=== PATIENT | female | born 1980 | race Caucasian/White ===

== ENCOUNTER 2016-04-11 12:42 | Emergency (ER) | payer MEDICAID ==
--- NOTE | 2016-04-11 12:57 | ER Document Report ---
ED Medical Screen (RME) - General Stated Complaint: BACK PAIN, VAGINAL BLEEDING Notes: 35 yo female c/o vaginal bleeding x 1 week. 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 s/p partial hysterctomy 2005. c/o left flank pain. no urinary symptoms. no fever. + nausea, no vomiting. TRAVEL OUTSIDE OF THE [place] IN LAST 30 DAYS: No - Related Data Allergies/Adverse Reactions: ketorolac tromethamine [From Toradol] Adverse Reaction (Unverified 05/05/15 08: 21) "feels like skin is crawling" morphine [Morphine] Adverse Reaction (Unverified 05/05/15 08:21) Past Medical History Pulmonary Medical History: Reports: Hx Asthma Neurological Medical History: Reports: Hx Migraine. Denies: Hx Seizures GI Medical History: Reports: Hx Gastroesophageal Reflux Disease Past Surgical History: Reports: Hx Breast Surgery - lump, Hx Section - X2, Hx Gynecologic Surgery, Hx Hysterectomy - bladder and rectal surger, Hx Orthopedic Surgery - r ankle, Hx Thyroid Surgery, Hx Tonsillectomy - Immunizations Hx Diphtheria, Pertussis, Tetanus Vaccination: Yes - utd Physical Exam - Vital signs Vitals: Temp Pulse Resp BP Pulse Ox 98.0 F 79 16 124/78 97 04/11/16 12:50 04/11/16 12:50 04/11/16 12:50 04/11/16 12:50 04/11/16 12:50 Course - Vital Signs Vital signs: Temp Pulse Resp BP Pulse Ox 98.0 F 79 16 124/78 97 04/11/16 12:50 04/11/16 12:50 04/11/16 12:50 04/11/16 12:50 04/11/16 12:50
[2016-04-11 13:37] LABS: APPEARANCE,URINE SLIGHTLY-CLOUDY; BILIRUBIN,URINE NEGATIVE (NEGATIVE); GLUCOSE, URINE NEGATIVE (NEGATIVE); KETONES,URINE NEGATIVE (NEGATIVE); LEUKOCYTE ESTERASE,URINE SMALL (NEGATIVE); NITRITE,URINE NEGATIVE (NEGATIVE); PROTEIN,URINE NEGATIVE (NEGATIVE); UROBILINOGEN,URINE NEGATIVE mg/dL (<2.0)
[2016-04-11 14:23] LABS: ALANINE AMINOTRANSFERASE 53 U/L (9-52); ALBUMIN 3.5 g/dL (3.5-5.0); ALKALINE PHOSPHATASE 107 U/L (38-126); ANION GAP 10 (5-19); ASPARTATE AMINO TRANSFERASE 49 U/L (14-36); BILIRUBIN,TOTAL 0.3 mg/dL (0.2-1.3); BLOOD UREA NITROGEN 18 mg/dL (7-20); CALCIUM 8.6 mg/dL (8.4-10.2); CARBON DIOXIDE 26 mmol/L (22-30); CHLORIDE 107 mmol/L (98-107); CREATININE RESULT 0.74 mg/dL (0.52-1.25); GLUCOSE 103 mg/dL (75-110); POTASSIUM 4.5 mmol/L (3.6-5.0); SODIUM 142.5 mmol/L (137-145); TOTAL PROTEIN 6.8 g/dL (6.3-8.2)
--- NOTE | 2016-04-11 14:40 | ER Document Report ---
ED GI/ - General Time seen by provider: 14:50 Mode of Arrival: Ambulatory Information source: Patient TRAVEL OUTSIDE OF THE [place] IN LAST 30 DAYS: No <JUAN C KRAUS - Last Filed: 04/11/16 16:43> <MARIUM TELLO - Last Filed: 04/11/16 17:25> - General Chief Complaint: Vaginal Bleeding Stated Complaint: BACK PAIN, VAGINAL BLEEDING Notes: 35-year-old female complaining of old vaginal bleeding when she urinates, wipes for 1 week. She also has increased left flank pain with coughing or movement for 4 days. Has history of kidney stones that it doesn't feel the same. hx chronic low back pain in which she takes methadone 10mg and ultram. 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 she does have some bladder drop since the surgery. No pain. No nausea vomiting or diarrhea. No Pap smears since 2005. No sex in 3 months. (JUAN C KRAUS) - Related Data Allergies/Adverse Reactions: ketorolac tromethamine [From Toradol] Adverse Reaction (Verified 04/11/16 12:57) "feels like skin is crawling" morphine [Morphine] Adverse Reaction (Verified 04/11/16 12:57) Past Medical History - General Information source: Patient - Social History Smoking Status: Current Every Day Smoker Chew tobacco use (# tins/day): No Frequency of alcohol use: None Drug Abuse: None Lives with: Family Family History: Reviewed & Not Pertinent Patient has suicidal ideation: No Patient has homicidal ideation: No Pulmonary Medical History: Reports: Hx Asthma Neurological Medical History: Reports: Hx Migraine GI Medical History: Reports: Hx Gastroesophageal Reflux Disease Past Surgical History: Reports: Hx Breast Surgery - lump, Hx Section - X2, Hx Gynecologic Surgery, Hx Hysterectomy - bladder and rectal surger, Hx Orthopedic Surgery - r ankle, Hx Thyroid Surgery, Hx Tonsillectomy - Immunizations Hx Diphtheria, Pertussis, Tetanus Vaccination: Yes - utd <JUAN C KRAUS - Last Filed: 04/11/16 16:43> Review of Systems - Review of Systems Constitutional: No symptoms reported EENT: No symptoms reported Cardiovascular: No symptoms reported Respiratory: No symptoms reported Gastrointestinal: No symptoms reported Genitourinary: No symptoms reported Female Genitourinary: No symptoms reported Musculoskeletal: No symptoms reported Skin: No symptoms reported Hematologic/Lymphatic: No symptoms reported Neurological/Psychological: No symptoms reported <JUAN C KRAUS - Last Filed: 04/11/16 16:43> Course - Laboratory Result Diagrams: 04/11/16 15:04 04/11/16 13:09 <JUAN C KRAUS - Last Filed: 04/11/16 16:43> - Laboratory Result Diagrams: 04/11/16 15:04 04/11/16 13:09 <MARIUM TELLO - Last Filed: 04/11/16 17:25> - Re-evaluation Re-evalutation: 04/11/16 15:38 dr paz will come sede the pt in the emergency department, to evaluate and possible biopsy. Discussed case with dr. tello. 04/11/16 16:20 dr. Paz saw the patient and biopsied the lesion that is vaginal at 6:00 under this cervical cough. She wants the patient to follow-up in her office next . She does not want any imaging today. (JUAN C KRAUS) 04/11/16 17:24 Patient independently seen and examined by myself all treatment decisions made by myself. Patient reports vaginal bleeding and trace suprapubic tenderness. She denies nausea, vomiting, or fever Skin warm and dry Chest clear to auscultation bilaterally breath sounds equal Heart regular rate and rhythm Abdomen muscle tone trace suprapubic tenderness nondistended Back nontender to palpation (MARIUM TELLO) - Vital Signs Vital signs: Temp Pulse Resp BP Pulse Ox 98.0 F 66 18 137/88 H 98 04/11/16 12:50 04/11/16 17:11 04/11/16 17:11 04/11/16 17:11 04/11/16 17:11 (JUAN C KRAUS) (MARIUM TELLO) - Laboratory Laboratory results interpreted by me: 04/11/16 04/11/16 13:09 13:09 AST 49 H ALT 53 H Urine Blood LARGE H Ur Leukocyte Esterase SMALL H (JUAN C KRAUS) (MARIUM TELLO) Discharge <JUAN C KRAUS - Last Filed: 04/11/16 16:43> <MARIUM TELLO - Last Filed: 04/11/16 17:25> - Discharge Clinical Impression: Vaginal lesion, vaginal biopsy, Vaginal bleeding, left flank back pain Condition: Good Disposition: HOME, SELF-CARE Instructions: Vaginal Bleeding ([facility]), Low Back Pain ([facility]) Additional Instructions: no sex until recheck expect some vaginal bleeding return to er if increased bleeding or pain the biopsy has been sent to the lab for evaluation see dr. paz in her office next , call for appointment Referrals: LILLIE PAZ MD [ACTIVE STAFF] - 04/19/16
[2016-04-11 15:12] LABS: ABSOLUTE BASOPHILS # (AUTO) 0.1 10^3/uL (0.0-0.2); ABSOLUTE EOSINOPHILS # (AUTO) 0.3 10^3/uL (0.0-0.6); ABSOLUTE LYMPHOCYTES (AUTO) 3.2 10^3/uL (0.5-4.7); ABSOLUTE MONOCYTES (AUTO) 0.9 10^3/uL (0.1-1.4); ABSOLUTE NEUT (AUTO) 6.1 10^3/uL (1.7-8.2); BASOPHILS % (AUTO) 0.7 % (0-2); EOSINOPHILS % (AUTO) 2.5 % (0-6); HEMATOCRIT 43.3 % (36.0-47.0); HEMOGLOBIN 14.5 g/dL (12.0-15.5); HGB HCT DIFFERENCE 0.2; LYMPHOCYTES % (AUTO) 30.3 % (13-45); MEAN CORPUSCULAR HEMOGLOBIN 29.9 pg (27.0-33.4); MEAN CORPUSCULAR HGB CONC 33.4 g/dL (32.0-36.0); MEAN CORPUSCULAR VOLUME 89 fl (80-97); MONOCYTES % (AUTO) 8.2 % (3-13); RED BLOOD COUNT 4.85 10^6/uL (3.72-5.28); RED CELL DISTRIBUTION WIDTH 12.7 % (11.5-14.0); SEGMENTED NEUTROPHILS % (AUTO) 58.3 % (42-78); WHITE BLOOD COUNT 10.5 10^3/uL (4.0-10.5)
[2016-04-11] MEDS ORDERED: TRAMADOL HCL 50 MG TABLET PO ONE (15:45)
[2016-04-11 17:13] VITALS: BP 137/88
[2016-04-11 17:14] LABS: CHLAM PCR NOT DETECTED (NOT DETECT)
== END 2016-04-11 17:11 | disposition home or self-care (01) ==
LOC: ER 12:42
PROC: 0UBGXZX Excision of Vagina, External Approach, Diagnostic (ICD-10-PCS; principal; 2016-04-11)
DX: N89.9 Noninflammatory disorder of vagina, unspecified (principal); N93.9 Abnormal uterine and vaginal bleeding, unspecified; Q79.6 Ehlers-Danlos syndromes; R10.9 Unspecified abdominal pain; M54.5 Low back pain; G89.29 Other chronic pain; J45.909 Unspecified asthma, uncomplicated; F17.200 Nicotine dependence, unspecified, uncomplicated; Z79.891 Long term (current) use of opiate analgesic; Z87.442 Personal history of urinary calculi; Z90.710 Acquired absence of both cervix and uterus; Z98.890 Other specified postprocedural states
CPT/HCPCS: 36415; 80053; 81001; 85025; 87086; 87210; 87491; 87591; 88305; 99284

== ENCOUNTER 2016-04-25 05:26 | Day surgery (SDC) | payer MEDICAID ==
[2016-04-24 12:22] LABS: APPEARANCE,URINE SLIGHTLY-CLOUDY; BILIRUBIN,URINE NEGATIVE (NEGATIVE); GLUCOSE, URINE NEGATIVE (NEGATIVE); KETONES,URINE NEGATIVE (NEGATIVE); LEUKOCYTE ESTERASE,URINE NEGATIVE (NEGATIVE); NITRITE,URINE NEGATIVE (NEGATIVE); PROTEIN,URINE NEGATIVE (NEGATIVE)
[2016-04-24 12:46] LABS: HEMATOCRIT 44.3 % (36.0-47.0); HEMOGLOBIN 15.2 g/dL (12.0-15.5); HGB HCT DIFFERENCE 1.3; MEAN CORPUSCULAR HEMOGLOBIN 30.2 pg (27.0-33.4); MEAN CORPUSCULAR HGB CONC 34.4 g/dL (32.0-36.0); MEAN CORPUSCULAR VOLUME 88 fl (80-97); RED BLOOD COUNT 5.05 10^6/uL (3.72-5.28); RED CELL DISTRIBUTION WIDTH 13.1 % (11.5-14.0)
[~2016-04-25 05:26] MED LIST: LACTATED RINGERS 1000 ML IV PRN
[2016-04-25] MEDS ORDERED: FENTANYL CITRATE INJ/PF 100 MCG/2 ML AMPUL ONE (07:19)
[2016-04-25] MEDS ORDERED: MIDAZOLAM 2 MG/2 ML INJ ONE (07:19)
[2016-04-25] MEDS ORDERED: PROPOFOL INJ 200 MG/20 ML VIAL IV ONE (07:20)
[2016-04-25] MEDS ORDERED: OXYCODONE-ACETAMINOPHEN 5-325 MG TABLET PO PRN ×2 (07:59)
[2016-04-25] MEDS ORDERED: PROMETHAZINE HCL INJ 25 MG/1 ML VIAL IV PRN ×2 (07:59)
[2016-04-25] MEDS ORDERED: DIPHENHYDRAMINE HCL 50 MG/ML VIAL IV PRN (07:59)
[2016-04-25] MEDS ORDERED: MEPERIDINE HCL/PF INJ 25 MG/1 ML DISP.SYRIN IV PRN (07:59)
[2016-04-25] MEDS ORDERED: FENTANYL CITRATE INJ/PF 100 MCG/2 ML AMPUL IV PRN ×3 (07:59)
[2016-04-25] MEDS ORDERED: MORPHINE SULFATE 10 MG/ML INJ IV PRN (07:59)
[2016-04-25] MEDS: FENTANYL CITRATE INJ/PF 100 MCG/2 ML AMPUL ONE ×2 (08:33→08:45)
[2016-04-25] MEDS ORDERED: ONDANSETRON HCL INJ/PF 4 MG/2 ML SDV ONE ×2 (08:38→11:23)
[2016-04-25] MEDS ORDERED: IBUPROFEN 800 MG TABLET PO PRN (08:47)
[2016-04-25 11:09] VITALS: BP 112/70
[2016-04-25] MEDS ORDERED: SUCCINYLCHOLINE CHLORIDE INJ 200 MG/10 ML VIAL ONE (11:23)
[2016-04-25] MEDS ORDERED: LIDOCAINE 2% INJ-PF (20 MG/ML) 10 ML AMPUL ONE (11:23)
[2016-04-25] MEDS ORDERED: GLYCOPYRROLATE INJ 0.4 MG/2 ML VIAL ONE (11:23)
[2016-04-25] MEDS ORDERED: KETOROLAC TROMETHAMINE 60 MG/2 ML SDV ONE (11:23)
[2016-04-25] MEDS ORDERED: DEXAMETHASONE SOD PHOSPHATE INJ 4 MG/1 ML VIAL ONE (11:23)
--- NOTE | 2016-07-05 02:43 | OPERATIVE REPORT E ---
Operative Report NAME: DEBBIE MOFFETT : 1980 AGE: 35Y DATE OF SURGERY: 04/25/2016 ROOM: PREOPERATIVE DIAGNOSIS: Status post supracervical hysterectomy with vaginal bleeding and pelvic pain. POSTOPERATIVE DIAGNOSIS: Status post supracervical hysterectomy with vaginal bleeding and pelvic pain. PROCEDURE PERFORMED: SURGEON: LILLIE PAZ M.D. ANESTHESIA: Dr. Long with [facility]. ESTIMATED BLOOD LOSS: Less than 5 mL. FINDINGS: Normal cervical stump with a small scratch on the posterior side of the cervix. PROCEDURE IN DETAIL: The patient was taken to the operating room, prepared and draped in a normal sterile fashion in dorsal lithotomy position. Under sterile conditions, an in and out catheter was performed. A sterile speculum was then placed into the vagina, and the cervix was prepped with Betadine. A thorough exam was performed, and a small scratch on the posterior side of the cervix was noted in the area of bleeding when the patient had previously presented to the ER a week earlier. This area was biopsied carefully with a pair of forceps and then the defect at the area of biopsy was then oversewn with 2-0 Chromic x2 interrupted stitches. No further bleeding. No other abnormalities were noted. The patient tolerated the procedure well. Sponge, lap, and needle counts were correct x2, and the patient was taken to recovery in stable condition. DICTATING PHYSICIAN: LILLIE PAZ M.D. [id number] PHY#: [id number] ID: [id number] JOB#: [id number] ACCT: [id number] cc:LILLIE PAZ M.D. >
== END 2016-04-25 10:45 | disposition home or self-care (01) ==
LOC: OROUT 05:26
PROVIDERS: ATTEND Obstetrics & Gynecology
PROC: 0UBC7ZX Excision of Cervix, Via Natural or Artificial Opening, Diagnostic (ICD-10-PCS; principal; 2016-04-25 07:30)
DX: N89.8 Other specified noninflammatory disorders of vagina (principal); J45.909 Unspecified asthma, uncomplicated; R01.1 Cardiac murmur, unspecified; Z88.5 Allergy status to narcotic agent; Z87.891 Personal history of nicotine dependence
CPT/HCPCS: 57500; 36415; 85027; 81005; 81025; 88305 ×2; J2250; J3490 ×3; J1100; J1885; J3010; J0330; J2405; J2704; 940

== ENCOUNTER → 2016-06-24 | Emergency (ER) | payer MEDICAID ==
[~2016-06-24] MED LIST changes: +BESIFLOXACIN HCL 0.6% OPH SUSP 5 ML BOTTLE OU ONE; +HYDROCODONE/ACETAMINOPHEN 5-325 MG 6 TAB/DSPK PO PRN; -LACTATED RINGERS 1000 ML IV PRN; +TETRACAINE HCL 0.5% OPH SOLN 2 ML OU ONE
[2016-06-24 02:52] VITALS: BP 133/81
--- NOTE | 2016-06-24 05:31 | ER Document Report ---
ED General - General Chief Complaint: Eye Pain Stated Complaint: BILATERAL EYE PAIN,BLURRY Notes: Patient is a 35-year-old female who presents with complaint of eye pain. She says it started her left eye. The left eye became red and irritated. Notes in her right eye as well. She denies any trauma or injuries to her eyes. She does not wear contacts. No foreign bodies to the eyes. She had similar symptoms conjunctivitis last year. She has some photophobia. She started having some nasal congestion the last 2 days as well. No fevers. No other complaints this time. TRAVEL OUTSIDE OF THE [place] IN LAST 30 DAYS: No - Related Data Allergies/Adverse Reactions: ketorolac tromethamine [From Toradol] Adverse Reaction (Verified 04/24/16 10:08) "feels like skin is crawling" Past Medical History - Social History Smoking Status: Unknown if Ever Smoked Frequency of alcohol use: None Drug Abuse: None Family History: Reviewed & Not Pertinent - Past Medical History Cardiac Medical History: Denies: Hx Coronary Artery Disease, Hx Heart Attack, Hx Hypertension Pulmonary Medical History: Reports: Hx Asthma - LAST ASTHMA ATTACK 1 YEAR AGO, Hx Bronchitis - A CHILD, Hx Pneumonia - A TEENAGER Denies: Hx COPD Neurological Medical History: Reports: Hx Migraine, Hx Seizures - LAST ONE 18 YEARS OLD. Denies: Hx Cerebrovascular Accident Renal/ Medical History: Denies: Hx Peritoneal Dialysis GI Medical History: Reports: Hx Gastroesophageal Reflux Disease Musculoskeltal Medical History: Denies Hx Arthritis Past Surgical History: Reports: Hx Breast Surgery - lump, Hx Section - X2, Hx Gynecologic Surgery, Hx Hysterectomy, Hx Orthopedic Surgery - r ankle, Hx Thyroid Surgery, Hx Tonsillectomy - Immunizations Hx Diphtheria, Pertussis, Tetanus Vaccination: No Review of Systems - Review of Systems Notes: My Normal Review Basic REVIEW OF SYSTEMS: CONSTITUTIONAL : Denies fever, chills, or sweats. Denies recent illness. EENT: Eye pain and redness to the left eye. CARDIOVASCULAR: Denies chest pain. RESPIRATORY: Denies cough, cold, or chest congestion. Denies shortness of breath, difficulty breathing, or wheezing. GASTROINTESTINAL: Denies abdominal pain. Denies nausea, vomiting, or diarrhea. Denies constipation. Last BM: MUSCULOSKELETAL: Denies neck or back pain or joint pain or swelling. SKIN: Denies rash or skin lesions. NEUROLOGICAL: Denies altered mental status or loss of consciousness. Denies headache. Denies weakness or paralysis or loss of use of either side. Denies problems with gait or speech. Denies sensory or motor loss. ALL OTHER SYSTEMS REVIEWED AND NEGATIVE. Physical Exam - Vital signs Vitals: Temp Pulse Resp BP Pulse Ox 98.4 F 99 18 133/81 H 98 06/24/16 02:47 06/24/16 02:47 06/24/16 02:47 06/24/16 02:47 06/24/16 02:47 - Notes Notes: General Appearance: Well nourished, alert, cooperative, no acute distress, no obvious discomfort. Obvious is located chest and on exam. Vitals: reviewed, See vital signs table. Head: no swelling or tenderness to the head Eyes: PERRL, EOMI, left conjunctiva is erythematous and consistent with conjunctivitis. No foreign body seen. Right conjunctivae slightly erythematous. No swelling or redness around the eye. Edvin-Pen pressure of the left eye is 19. Edvin-Pen pressure of the right eye is 17. Pupils are not cloudy. Mouth: No decreasd moisture Skin: warm, dry, appropriate color, no rash Neuro: speech clear, oriented x 3, normal affect, responds appropriately to questions. Course - Vital Signs Vital signs: Temp Pulse Resp BP Pulse Ox 98.4 F 99 18 133/81 H 98 06/24/16 02:47 06/24/16 02:47 06/24/16 02:47 06/24/16 02:47 06/24/16 02:47 - Transfer of Care Notes: 06/24/16 05:58 Patient has findings consistent with conjunctivitis. Her tonopen pressures were normal. She with placed on Besivance eyedrops. She's encouraged to follow closely with torch solderer in one to 2 days for reevaluation. She's encouraged return to ER if she has worsening pain, worsening redness, fevers, or feels unwell. Patient agrees with plan and will be discharged home. 06/24/16 05:59 Dictation of this chart was performed using voice recognition software; therefore, there may be some unintended grammatical errors. Discharge - Discharge Clinical Impression: Conjunctivitis Qualifiers: Conjunctivitis type: acute Acute conjunctivitis type: unspecified Laterality: bilateral Qualified Code(s): H10.33 - Unspecified acute conjunctivitis, bilateral Eye pain Qualifiers: Laterality: bilateral Qualified Code(s): H57.13 - Ocular pain, bilateral Condition: Good Disposition: HOME, SELF-CARE Additional Instructions: Conjunctivitis You have an infection in your eye, commonly known as "pink eye." Conjunctivitis causes redness, mild discomfort, itching, and mattering on the eyelids. It is very contagious, so you must be careful to wash your hands after touching your face so you don't pass the infection on to others. Conjunctivitis is caused by both viruses and bacteria. It usually responds quickly to treatment with antibiotic drops. These should be placed in the eye as prescribed (usually every three to four hours while you're awake). If you wear contact lenses, don't put them in your eyes until the infection is cleared and you are no longer using the drops (unless your doctor advises you otherwise). Should you develop increasing eye pain, severe swelling, decreased vision, or fail to improve as expected, please return for re-examination. Please return to ER immediately if you have fevers, worsening redness or swelling in your eyes, or if your symptoms are not improving after being on eyedrops for 3 days. Please follow-up with torch solderer on Saturday. I provided the phone number to 2 different local torch solderer. Please apply 1 drop of the Besivance to both eyes 3 times a day for 7 days. Forms: Return to Work Referrals: CHRIS PIÑA MD [ACTIVE STAFF] - 06/25/16 WINSOME MCKINNON DO [ACTIVE STAFF] - 06/25/16
== END | disposition home or self-care (01) ==
LOC: ER 02:39
DX: H10.33 Unspecified acute conjunctivitis, bilateral (principal); H57.13 Ocular pain, bilateral; H53.143 Visual discomfort, bilateral; R09.81 Nasal congestion
CPT/HCPCS: 99283; J3490

== ENCOUNTER 2017-04-29 16:31 | Emergency (ER) | payer MEDICAID ==
[2017-04-29] MEDS ORDERED: HYDROCODONE/ACETAMINOPHEN 5-325 MG TABLET PO ONE (19:09)
--- NOTE | 2017-04-29 19:10 | ER Document Report ---
ED Skin Rash/Insect Bite/Abscs - General Chief Complaint: Abscess Stated Complaint: VAGINAL DISCOMFORT Time Seen by Provider: 04/29/17 18:57 Mode of Arrival: Ambulatory Information source: Patient Notes: Pt is a 36-year-old female who presents to the ER today for a lump inside her right labia since March 18. Patient states that yesterday it got warm, more swollen and painful. She denies any drainage. She denies any fevers or chills. TRAVEL OUTSIDE OF THE [place] IN LAST 30 DAYS: No - Related Data Allergies/Adverse Reactions: ketorolac tromethamine [From Toradol] Adverse Reaction (Verified 04/29/17 16:35) "feels like skin is crawling" Past Medical History - General Information source: Patient - Social History Smoking Status: Current Every Day Smoker Chew tobacco use (# tins/day): No Frequency of alcohol use: None Drug Abuse: None Family History: Reviewed & Not Pertinent Patient has suicidal ideation: No Patient has homicidal ideation: No - Past Medical History Cardiac Medical History: Denies: Hx Coronary Artery Disease, Hx Heart Attack, Hx Hypertension Pulmonary Medical History: Reports: Hx Asthma - LAST ASTHMA ATTACK 1 YEAR AGO, Hx Bronchitis - A CHILD, Hx Pneumonia - A TEENAGER Denies: Hx COPD Neurological Medical History: Reports: Hx Migraine, Hx Seizures - LAST ONE 18 YEARS OLD. Denies: Hx Cerebrovascular Accident Renal/ Medical History: Denies: Hx Peritoneal Dialysis GI Medical History: Reports: Hx Gastroesophageal Reflux Disease Musculoskeltal Medical History: Denies Hx Arthritis Past Surgical History: Reports: Hx Breast Surgery - lump, Hx Section - X2, Hx Gynecologic Surgery, Hx Hysterectomy, Hx Orthopedic Surgery - r ankle, Hx Thyroid Surgery, Hx Tonsillectomy - Immunizations Hx Diphtheria, Pertussis, Tetanus Vaccination: No Review of Systems - Review of Systems Constitutional: No symptoms reported EENT: No symptoms reported Cardiovascular: No symptoms reported Respiratory: No symptoms reported Gastrointestinal: No symptoms reported Genitourinary: No symptoms reported Female Genitourinary: See HPI Musculoskeletal: No symptoms reported Skin: No symptoms reported Hematologic/Lymphatic: No symptoms reported Neurological/Psychological: No symptoms reported Physical Exam - Vital signs Vitals: Temp Pulse Resp BP Pulse Ox 99.1 F 81 20 123/81 97 04/29/17 17:06 04/29/17 17:06 04/29/17 17:06 04/29/17 17:06 04/29/17 17:06 - Notes Notes: PHYSICAL EXAMINATION: GENERAL: Well-appearing and in no acute distress. HEAD: Atraumatic, normocephalic. EYES: Pupils equal round and reactive to light, extraocular movements intact, sclera anicteric, conjunctiva are normal. NECK: Normal range of motion, supple without lymphadenopathy LUNGS: CTAB and equal. No wheezes rales or rhonchi. HEART: Regular rate and rhythm without murmurs : small, less than 1cm area of induration to right labia minora, tender to palpation EXTREMITIES: Normal range of motion, no pitting edema. No cyanosis. NEUROLOGICAL: Cranial nerves grossly intact. Normal sensory/motor exams. PSYCH: Normal mood, normal affect. SKIN: Warm, Dry, normal turgor, no rashes or lesions noted Course - Vital Signs Vital signs: Temp Pulse Resp BP Pulse Ox 99.1 F 81 20 123/81 97 04/29/17 17:06 04/29/17 17:06 04/29/17 17:06 04/29/17 17:06 04/29/17 17:06 Discharge - Discharge Clinical Impression: Abscess of labia Condition: Stable Disposition: HOME, SELF-CARE Additional Instructions: Return immediately for any new or worsening symptoms. Follow up with primary care provider, call tomorrow to make followup appointment. Prescriptions: Sulfamethoxazole/Trimethoprim [Bactrim Ds Tablet] 1 each PO BID #20 tablet
[2017-04-29 19:26] VITALS: BP 109/74
== END 2017-04-29 19:26 | disposition home or self-care (01) ==
LOC: ER 16:31
DX: N76.4 Abscess of vulva (principal); F17.200 Nicotine dependence, unspecified, uncomplicated; Z90.710 Acquired absence of both cervix and uterus
CPT/HCPCS: 99282

== ENCOUNTER 2017-05-02 07:45 | Emergency (ER) | payer MEDICAID ==
[2017-05-02 07:58] VITALS: BP 122/84
--- NOTE | 2017-05-02 09:13 | ER Document Report ---
ED Skin Rash/Insect Bite/Abscs - General Chief Complaint: Abscess Stated Complaint: VAGINAL PAIN Time Seen by Provider: 05/02/17 09:09 Notes: The patient is a 36-year-old female who presents with 1 month of labial abscess. She was seen in the ER 3 days ago and started on Bactrim, but she says that her abscess is worsening. She denies fevers, vaginal discharge, dysuria, nausea, vomiting or any other abscesses. TRAVEL OUTSIDE OF THE [place] IN LAST 30 DAYS: No - Related Data Allergies/Adverse Reactions: ketorolac tromethamine [From Toradol] Adverse Reaction (Verified 05/02/17 07:46) "feels like skin is crawling" Past Medical History - General Information source: Patient - Social History Smoking Status: Unknown if Ever Smoked Family History: Reviewed & Not Pertinent - Past Medical History Cardiac Medical History: Denies: Hx Coronary Artery Disease, Hx Heart Attack, Hx Hypertension Pulmonary Medical History: Reports: Hx Asthma - LAST ASTHMA ATTACK 1 YEAR AGO, Hx Bronchitis - A CHILD, Hx Pneumonia - A TEENAGER Denies: Hx COPD Neurological Medical History: Reports: Hx Migraine, Hx Seizures - LAST ONE 18 YEARS OLD. Denies: Hx Cerebrovascular Accident Renal/ Medical History: Denies: Hx Peritoneal Dialysis GI Medical History: Reports: Hx Gastroesophageal Reflux Disease Musculoskeltal Medical History: Denies Hx Arthritis Past Surgical History: Reports: Hx Breast Surgery - lump, Hx Section - X2, Hx Gynecologic Surgery, Hx Hysterectomy, Hx Orthopedic Surgery - r ankle, Hx Thyroid Surgery, Hx Tonsillectomy - Immunizations Hx Diphtheria, Pertussis, Tetanus Vaccination: No Review of Systems - Review of Systems Notes: REVIEW OF SYSTEMS: CONSTITUTIONAL: -fevers, -chills EENT: -eye pain, -difficulty swallowing, -nasal congestion CARDIOVASCULAR: -chest pain, -syncope. RESPIRATORY: -cough, -SOB GASTROINTESTINAL: -abdominal pain, -nausea, -vomiting, -diarrhea GENITOURINARY: +vaginal abscess, -dysuria, -hematuria MUSCULOSKELETAL: -back pain, -neck pain SKIN: -rash or skin lesions. HEMATOLOGIC: -easy bruising or bleeding. LYMPHATIC: -swollen, enlarged glands. NEUROLOGICAL: -altered mental status or loss of consciousness, -headache, - neurologic symptoms PSYCHIATRIC: -anxiety, -depression. ALL OTHER SYSTEMS REVIEWED AND NEGATIVE. Physical Exam - Vital signs Vitals: Temp Pulse Resp BP Pulse Ox 98.4 F 82 16 122/84 97 05/02/17 07:57 05/02/17 07:57 05/02/17 07:57 05/02/17 07:57 05/02/17 07:57 - Notes Notes: PHYSICAL EXAMINATION: GENERAL: Well-appearing, well-nourished and in no acute distress. HEAD: Atraumatic, normocephalic. EYES: Pupils equal round and reactive to light, extraocular movements intact, sclera anicteric, conjunctiva are normal. ENT: nares patent, oropharynx clear without exudates. Moist mucous membranes. NECK: Normal range of motion, supple without lymphadenopathy LUNGS: Breath sounds clear to auscultation bilaterally and equal. No wheezes rales or rhonchi. HEART: Regular rate and rhythm without murmurs ABDOMEN: Soft, nontender, normoactive bowel sounds. No guarding, no rebound. No masses appreciated. : 2 cm abscess with a pointed region at superior right labia majora. No crepitus in groin region. EXTREMITIES: Normal range of motion, no pitting or edema. No cyanosis. NEUROLOGICAL: Cranial nerves grossly intact. Normal speech, normal gait. Normal sensory and motor exams. PSYCH: Normal mood, normal affect. SKIN: Warm, Dry, normal turgor, no rashes or lesions noted. Course - Re-evaluation Re-evalutation: Patient with right labia majora abscess that was I&D'ed with some purulent drainage. She already has a prescription for Bactrim. No signs of Tracey's and no history of diabetes. Will discharge patient home with follow-up with gynecology and instructions to continue her Bactrim. - Vital Signs Vital signs: Temp Pulse Resp BP Pulse Ox 98.4 F 82 16 122/84 97 05/02/17 07:57 05/02/17 07:57 05/02/17 07:57 05/02/17 07:57 05/02/17 07:57 Procedures - Incision and Drainage Right Labia Time completed: 09:24 Type: Simple Anesthetic type: 1% Lidocaine w/epi mL's of anesthetic: 3 Blade size: 11 I&D procedure: Betadine prep applied Incision Method: Incision made by scalpel Amount/type of drainage: 3 mL purulent drainage Discharge - Discharge Clinical Impression: Abscess of right genital labia Condition: Stable Disposition: HOME, SELF-CARE Additional Instructions: Continue the antibiotics as already prescribed. Continue to use warm compresses and hot baths. Follow-up with gynecology this week for a recheck of your symptoms. ABSCESS: You have an abscess (boil). This a pus-forming infection, usually due to staph. Some boils may be left to drain on their own, but most require lancing. From the time the tender lump first appears, it may be three or four days before the abscess is ready to milagro. Local heat and rest help at this stage of treatment. An antibiotic may prevent spread of the infection. Once the abscess is opened, packing may be placed into it. This is done so pus is not sealed inside by premature closure of the cavity. The packing will be removed at your follow-up visit or you may be advised to remove it yourself at home. Sometimes this packing must be replaced a few times during healing. The wound will heal with surprisingly little scar. Depending on the size and location of an abscess, healing can take one to four weeks. You may shower and wash the area around the incision site two or three times a day. Antibiotics may be prescribed, but are usually not necessary after an abscess has been drained. If you develop fever, chills, worsening pain, or increasing swelling in the area, call the doctor or return immediately. POST INCISION AND DRAINAGE: You have had an incision made to allow drainage of an abscess. The incision must remain open so that pus and debris can drain from the wound. If the abscess cavity is large, packing is placed. This keeps the tissues from collapsing and trapping pus inside, while the body shrinks the cavity. The packing may need to be replaced every day or two. The physician will instruct you on the packing. Keep a bulky dressing over the area. Replace it if it becomes saturated with blood or pus. Do not disturb the packing (if present). You may shower and cleanse the area with gentle soap and warm water two or three times a day. Local warmth may be soothing, and may promote faster healing. Return if you develop high fever or chills, or if you note spreading redness, increasing swelling, or increasing tenderness. MRSA CELLULITIS: You have an infection of your skin and underlying soft tissues called cellulitis. This is due to bacteria, which can enter through any break in the skin, or even through an irritated hair follicle. Untreated, cellulitis will usually worsen and may form an abscess which requires draining. Although many bacterial organisms can cause cellulitis and abscess formations, the most likely bacteria is Methicillin-Resistant Staph Aureus, or MRSA for short. Antibiotics are required. Usually, warm packs or warm soaks, and elevation of the infected area are recommended. You should start getting better within 24 to 36 hours. Most infections respond quickly to the right medication. Follow-up care is important, however, to check for abscess (boil) formation, unsuspected foreign body, or resistant infection. If you develop fever, chills, or if the area of infection is becoming rapidly more swollen or painful, call the doctor at once. TRIMETHOPRIM-SULFA: You have been given a prescription for trimethoprim-sulfa (TMS, Septra, Bactrim). This is a combination antibiotic of the sulfa class, often used for urinary tract infections, middle ear infections, bronchitis, shigella intestinal infection, and Pneumocystis pneumonia. TMS is usually well-tolerated. Occasional side effects include nausea and decreased appetite. Septra is not recommended for infants less than two months of age. Do not take this medication if you have experienced severe side effects or allergy to sulfa medicine. You should stop this medicine at once and contact your physician if you develop any rash, joint pain, shortness of breath, bruising, or jaundice ( yellow color in the skin), or if you develop any other new or unusual symptoms. FOLLOW-UP CARE: Most simple abscesses will not require a follow up visit. If you had packing placed in the abscess, remove it as instructed by the physician. If you have been referred to a physician for follow-up care, call the physicians office for an appointment as you were instructed or within the next two days. If you experience worsening or a significant change in your symptoms, return to the Emergency Department at any time for re-evaluation. Referrals: LILLIE PAZ MD [ACTIVE STAFF] - Follow up as needed
[2017-05-02] MEDS ORDERED: LIDOCAINE 1%/EPINEPHRINE INJ 20 ML VIAL INJ ONE (09:19)
[2017-05-02] MEDS ORDERED: HYDROCODONE/ACETAMINOPHEN 5-325 MG TABLET PO ONE (09:19)
== END 2017-05-02 10:57 | disposition home or self-care (01) ==
LOC: ER 07:45
DX: N76.4 Abscess of vulva (principal); J45.909 Unspecified asthma, uncomplicated
CPT/HCPCS: 99283; J3490

== ENCOUNTER 2017-05-05 14:17 | Emergency (ER) | payer MEDICAID ==
[2017-05-05 14:47] VITALS: BP 121/73
[2017-05-05] MEDS ORDERED: TETRACAINE HCL 0.5% OPH SOLN 2 ML ONE (15:47)
--- NOTE | 2017-05-05 15:47 | ER Document Report ---
ED General - General Chief Complaint: Redness of Eye Stated Complaint: RIGHT EYE IRRITATION Time Seen by Provider: 05/05/17 15:03 Mode of Arrival: Ambulatory Information source: Patient TRAVEL OUTSIDE OF THE [place] IN LAST 30 DAYS: No - HPI Notes: 36 yr old female prsents today with right eye pain and exudates x 2 days. Reports eyelids are stuck together in the morning. Denies blurred vision, eye pain or loss of vision. No otc medications tried. Does not wear contacts. Has not tried any warm compress to eye. Nothing makes better or worse. denies fevers or chills. denies any trauma to eyes. Has had at least 3 conjunctivitis last year. Denies any chest pain, shortness of breath, nausea, vomiting, diarrhea, weakness to bilateral upper or lower extremities. Denies any headaches. reports photophobia, denies phonophobia - Related Data Allergies/Adverse Reactions: ketorolac tromethamine [From Toradol] Adverse Reaction (Verified 05/02/17 07:46) "feels like skin is crawling" Past Medical History - General Information source: Patient, Relative - Social History Smoking Status: Unknown if Ever Smoked Family History: Reviewed & Not Pertinent - Past Medical History Cardiac Medical History: Denies: Hx Coronary Artery Disease, Hx Heart Attack, Hx Hypertension Pulmonary Medical History: Reports: Hx Asthma - LAST ASTHMA ATTACK 1 YEAR AGO, Hx Bronchitis - A CHILD, Hx Pneumonia - A TEENAGER Denies: Hx COPD Neurological Medical History: Reports: Hx Migraine, Hx Seizures - LAST ONE 18 YEARS OLD. Denies: Hx Cerebrovascular Accident Renal/ Medical History: Denies: Hx Peritoneal Dialysis GI Medical History: Reports: Hx Gastroesophageal Reflux Disease Musculoskeltal Medical History: Denies Hx Arthritis Past Surgical History: Reports: Hx Breast Surgery - lump, Hx Section - X2, Hx Gynecologic Surgery, Hx Hysterectomy, Hx Orthopedic Surgery - r ankle, Hx Thyroid Surgery, Hx Tonsillectomy - Immunizations Hx Diphtheria, Pertussis, Tetanus Vaccination: No Review of Systems - Review of Systems Constitutional: No symptoms reported EENT: See HPI Cardiovascular: No symptoms reported Respiratory: No symptoms reported Gastrointestinal: No symptoms reported Genitourinary: No symptoms reported Female Genitourinary: No symptoms reported Musculoskeletal: No symptoms reported Skin: No symptoms reported Hematologic/Lymphatic: No symptoms reported Neurological/Psychological: No symptoms reported Physical Exam - Vital signs Vitals: Temp Pulse Resp BP Pulse Ox 98.8 F 65 16 121/73 98 05/05/17 14:46 05/05/17 14:46 05/05/17 14:46 05/05/17 14:46 05/05/17 14:46 Interpretation: Normal - Notes Notes: PHYSICAL EXAMINATION: GENERAL: Well-appearing, well-nourished and in no acute distress. HEAD: Atraumatic, normocephalic. EYES: Pupils equal round and reactive to light, extraocular movements intact, conjunctiva are normal. left conjunctiva with erythema. Fluostain negative for corneal abrasion, foreign body, dendrites or ulcer. PERLLA, EMOI. Red reflex wnl. Normal fundi and optic discs. ENT: Nares patent, oropharynx clear without exudates. Moist mucous membranes. NECK: Normal range of motion, supple without lymphadenopathy LUNGS: Breath sounds clear to auscultation bilaterally and equal. No wheezes rales or rhonchi. HEART: Regular rate and rhythm without murmurs ABDOMEN: Soft, nontender, nondistended abdomen. No guarding, no rebound. No masses appreciated. Female : deferred Musculoskeletal: Normal range of motion, no pitting or edema. No cyanosis. NEUROLOGICAL: Cranial nerves grossly intact. Normal speech, normal gait. Normal sensory, motor exams PSYCH: Normal mood, normal affect. SKIN: Warm, Dry, normal turgor, no rashes or lesions noted. Course - Re-evaluation Re-evalutation: tonometer reads 14 bilaterally After performing a Medical Screening Examination, I estimate there is LOW risk for a RETAINED CORNEAL or LID FOREIGN BODY, DEEP SPACE INFECTION (e.g., ORBITAL CELLULITIS OR ABSCESS), ACUTE GLAUCOMA, PENETRATING GLOBE INJURY, RETINAL DETACHMENT, or MENINGITIS thus I consider the discharge disposition reasonable. I have reevaluated this patient multiple times and no significant life threatening changes are noted. Also, there is no evidence or peritonitis, sepsis , or toxicity. The patient and I have discussed the diagnosis and risks, and we agree with discharging home with outpatient follow-up with the understanding that symptoms and presentations can change. We also discussed returning to the Emergency Department immediately if new or worsening symptoms occur. We have discussed the symptoms which are most concerning (e.g., changing or worsening pain, vision changes, neck stiffness or fever) that necessitate immediate return. - Vital Signs Vital signs: Temp Pulse Resp BP Pulse Ox 98.8 F 65 16 121/73 98 05/05/17 14:46 05/05/17 14:46 05/05/17 14:46 05/05/17 14:46 05/05/17 14:46 Discharge - Discharge Clinical Impression: Bacterial conjunctivitis of right eye Condition: Good Disposition: HOME, SELF-CARE Instructions: Conjunctivitis ([facility]), Antibiotic Therapy ([facility]), Eyedrop Use ([facility]) Additional Instructions: Conjunctivitis You have an infection in your eye, commonly known as "pink eye." Conjunctivitis causes redness, mild discomfort, itching, and mattering on the eyelids. It is very contagious, so you must be careful to wash your hands after touching your face so you don't pass the infection on to others. Conjunctivitis is caused by both viruses and bacteria. It usually responds quickly to treatment with antibiotic drops. These should be placed in the eye as prescribed (usually every three to four hours while you're awake). If you wear contact lenses, don't put them in your eyes until the infection is cleared and you are no longer using the drops (unless your doctor advises you otherwise). Should you develop increasing eye pain, severe swelling, decreased vision, or fail to improve as expected, please return for re-examination. follow up with heavy threader within 1 to days. Warm compress aside 20 minutes on 20 minutes off several times a day. Follow-up with PCP within 1-2 days. Return to the emergency room if symptoms become worse. Prescriptions: Moxifloxacin HCl [Vigamox 0.5% Oph Soln 3 ml] 1 drop OP TID #1 bottle Referrals: CHRIS PIÑA MD [ACTIVE STAFF] - Follow up in 3-5 days
== END 2017-05-05 16:22 | disposition home or self-care (01) ==
LOC: ER 14:17
DX: H10.9 Unspecified conjunctivitis (principal); B96.89 Other specified bacterial agents as the cause of diseases classified elsewhere; H57.11 Ocular pain, right eye; J45.909 Unspecified asthma, uncomplicated
CPT/HCPCS: 99282

== ENCOUNTER 2017-08-08 06:39 | Emergency (ER) | payer MEDICAID ==
--- NOTE | 2017-08-08 06:56 | ER Document Report ---
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 Patient notes she was stretching in bed felt a pop sensation of her left lateral malleolus. Patient notes it hurts with range of motion now. Patient denies any other injuries TRAVEL OUTSIDE OF THE [place] IN LAST 30 DAYS: No - HPI Onset: This morning - at 3 am Onset/Duration: Sudden Quality of pain: Sharp Severity: Mild Pain Level: 1 Associated symptoms: Body/muscle aches Exacerbated by: Movement Relieved by: Denies Similar symptoms previously: Yes Recently seen / treated by doctor: Yes - Related Data Allergies/Adverse Reactions: ketorolac tromethamine [From Toradol] Adverse Reaction (Verified 05/02/17 07:46) "feels like skin is crawling" Past Medical History - Social History Smoking Status: Current Every Day Smoker Cigarette use (# per day): Yes Chew tobacco use (# tins/day): No Smoking Education Provided: No Frequency of alcohol use: None Drug Abuse: None Family History: Reviewed & Not Pertinent - Past Medical History Cardiac Medical History: Denies: Hx Coronary Artery Disease, Hx Heart Attack, Hx Hypertension Pulmonary Medical History: Reports: Hx Asthma - LAST ASTHMA ATTACK 1 YEAR AGO, Hx Bronchitis - A CHILD, Hx Pneumonia - A TEENAGER Denies: Hx COPD Neurological Medical History: Reports: Hx Migraine, Hx Seizures - LAST ONE 18 YEARS OLD. Denies: Hx Cerebrovascular Accident Renal/ Medical History: Denies: Hx Peritoneal Dialysis GI Medical History: Reports: Hx Gastroesophageal Reflux Disease Musculoskeltal Medical History: Denies Hx Arthritis Past Surgical History: Reports: Hx Breast Surgery - lump, Hx Section - X2, Hx Gynecologic Surgery, Hx Hysterectomy, Hx Orthopedic Surgery - r ankle, Hx Thyroid Surgery, Hx Tonsillectomy - Immunizations Hx Diphtheria, Pertussis, Tetanus Vaccination: No Review of Systems - Review of Systems Notes: REVIEW OF SYSTEMS: CONSTITUTIONAL : Denies fever, chills, or sweats. Denies recent illness. EENT: Denies eye, ear, throat, or mouth pain or symptoms. Denies nasal or sinus congestion or discharge. Denies throat, tongue, or mouth swelling or difficulty swallowing. CARDIOVASCULAR: Denies chest pain. Denies palpitations or racing or irregular heart beat. Denies ankle edema. RESPIRATORY: Denies cough, cold, or chest congestion. Denies shortness of breath, difficulty breathing, or wheezing. GASTROINTESTINAL: Denies abdominal pain or distention. Denies nausea, vomiting , or diarrhea. Denies blood in vomitus, stools, or per rectum. Denies black, tarry stools. Denies constipation. GENITOURINARY: Denies difficulty urinating, painful urination, burning, frequency, blood in urine, or discharge. FEMALE GENITOURINARY: Denies vaginal bleeding, heavy or abnormal periods, irregular periods. Denies vaginal discharge or odor. MUSCULOSKELETAL: Admits to left ankle pain SKIN: Denies rash, lesions or sores. HEMATOLOGIC : Denies easy bruising or bleeding. LYMPHATIC: Denies swollen, enlarged glands. NEUROLOGICAL: Denies confusion or altered mental status. Denies passing out or loss of consciousness. Denies dizziness or lightheadedness. Denies headache. Denies weakness or paralysis or loss of use of either side. Denies problems with gait or speech. Denies sensory loss, numbness, or tingling. Denies seizures. PSYCHIATRIC: Denies anxiety or stress. Denies depression, suicidal ideation, or homicidal ideation. ALL OTHER SYSTEMS REVIEWED AND NEGATIVE. PHYSICAL EXAMINATION: GENERAL: Well-appearing, well-nourished and in no acute distress. HEAD: Atraumatic, normocephalic. EYES: Pupils equal round and reactive to light, extraocular movements intact, conjunctiva are normal. ENT: Nares patent, oropharynx clear without exudates. Moist mucous membranes. NECK: Normal range of motion, supple without lymphadenopathy LUNGS: Breath sounds clear to auscultation bilaterally and equal. No wheezes rales or rhonchi. HEART: Regular rate and rhythm without murmurs ABDOMEN: Soft, nontender, nondistended abdomen. No guarding, no rebound. No masses appreciated. Female : deferred Musculoskeletal: Tenderness of the inferior left lateral alar region or along the anterior talofibular ligament otherwise full range of motion NEUROLOGICAL: Cranial nerves grossly intact. Normal speech, normal gait. Normal sensory, motor exams PSYCH: Normal mood, normal affect. SKIN: Warm, Dry, normal turgor, no rashes or lesions noted. Dictation was performed using Dragon voice recognition software Physical Exam - Vital signs Vitals: Temp Pulse Resp BP Pulse Ox 98.3 F 97 18 130/97 H 98 08/08/17 06:39 08/08/17 06:39 08/08/17 06:39 08/08/17 06:39 08/08/17 06:39 Course - Re-evaluation Re-evalutation: 08/08/17 06:55 Probable ligamentous injury x-ray pending 08/08/17 07:28 Patient's x-ray notes no significant abnormality, she will be placed in ankle stirrup for comfort is otherwise well-appearing no distress she will be given pain control and follow-up with orthopedics crutches offered After performing a Medical Screening Examination, I estimate there is LOW risk for INTRACRANIAL HEMORRHAGE, UNSTABLE SPINE FRACTURE, CENTRAL CORD SYNDROME, CAUDA EQUINA, THORACIC AORTIC DISSECTION, PNEUMOTHORAX, PERFORATED BOWEL, RUPTURED ABDOMINAL AORTIC ANEURYSM, ACUTE TENDON RUPTURE, COMPARTMENT SYNDROME, or OPEN FRACTURE, thus I consider the discharge disposition reasonable. Also, there is no evidence or peritonitis, sepsis, or toxicity. I have reevaluated this patient multiple times and no significant life threatening changes are noted. The patient and I have discussed the diagnosis and risks, and we agree with discharging home to follow-up with their primary doctor with the understanding that symptoms and presentations can change. We also discussed returning to the Emergency Department immediately if new or worsening symptoms occur. We have discussed the symptoms which are most concerning (e.g., bloody stool, fever, changing or worsening pain, vomiting) that necessitate immediate return. - Vital Signs Vital signs: Temp Pulse Resp BP Pulse Ox 98.3 F 97 18 130/97 H 98 08/08/17 06:39 08/08/17 06:39 08/08/17 06:39 08/08/17 06:39 08/08/17 06:39 - Diagnostic Test Radiology reviewed: Image reviewed - X-ray ankle 3 view left there is no significant abnormality, Reports reviewed Procedures - Immobilization Left Ankle Time completed: 07:35 Pre-Proc Neuro Vasc Exam: Normal Immobilizer type: Ankle stirrup Performed by: PCT Post-Proc Neuro Vasc Exam: Normal Alignment checked and good: Yes Discharge - Discharge Clinical Impression: Sprain of anterior talofibular ligament of left ankle Qualifiers: Encounter type: initial encounter Qualified Code(s): S93.492A - Sprain of other ligament of left ankle, initial encounter Condition: Stable Disposition: HOME, SELF-CARE Instructions: Splint Precautions ([facility]), Sprained Ankle ([facility]) Additional Instructions: X-ray at this time notes no significant abnormality, however if her symptoms do not improve there is a concern for ligamentous injury, please follow-up with orthopedic physician regarding further evaluation and care Prescriptions: Hydrocodone/Acetaminophen [Galva 5-325 mg Tablet] 1 tab PO Q6 #10 tablet Referrals: PRASHANTH MASTERS, [facility] [Primary Care Provider] - Follow up as needed SPEEDY LOUIE MD [ACTIVE STAFF] - Follow up in 1 week
--- NOTE | 2017-08-08 07:20 | RADIOLOGY REPORT (SQ) ---
EXAM DESCRIPTION: Left ankle, 3 views CLINICAL HISTORY: ankle pain COMPARISON: None. FINDINGS: 3 views of the left ankle. No acute fracture or dislocation. Normal osseous the fifth metatarsal is intact. Tibial plafond and talar dome have normal alignment and contour. IMPRESSION: No acute fracture or dislocation
[2017-08-08] MEDS ORDERED: HYDROCODONE/ACETAMINOPHEN 5-325 MG TABLET PO ONE (07:28)
[2017-08-08 08:09] VITALS: BP 123/85
== END 2017-08-08 08:10 | disposition home or self-care (01) ==
LOC: ER 06:39
DX: S93.492A Sprain of other ligament of left ankle, initial encounter (principal); M25.572 Pain in left ankle and joints of left foot; X58.XXXA Exposure to other specified factors, initial encounter; Q79.6 Ehlers-Danlos syndromes; F17.210 Nicotine dependence, cigarettes, uncomplicated; J45.909 Unspecified asthma, uncomplicated
CPT/HCPCS: 99283; 73610; L1902; L4350

== ENCOUNTER 2017-09-08 17:31 | Emergency (ER) | payer MEDICAID ==
[2017-09-08] MEDS ORDERED: ONDANSETRON 4 MG TAB.RAPDIS PO ONE (18:29)
[2017-09-08] MEDS ORDERED: METOCLOPRAMIDE HCL ORAL SOLN 10 MG/10 ML UDCUP PO ONE (18:29)
[2017-09-08] MEDS ORDERED: MAG HYDROX/AL HYDROX/SIMETH SUSP 30 ML UDCUP PO ONE (18:29)
[2017-09-08] MEDS ORDERED: LIDOCAINE 2% VISCOUS SOLN 20 ML UDCUP PO ONE (18:29)
--- NOTE | 2017-09-08 18:30 | ER Document Report ---
ED Medical Screen (RME) - General Chief Complaint: Epigastric Pain Stated Complaint: ABDOMINAL PAIN Time Seen by Provider: 09/08/17 18:23 Mode of Arrival: Ambulatory Information source: Patient Notes: 36-year-old female with a history of reflux, asthma, Dimitrios-Danlos syndrome presents with complaint of right upper quadrant abdominal pain, nausea, burning chest pain that started just prior to arrival after eating fajitas. Pain is described as throbbing, burning with radiation to her right flank. Patient has a history of kidney stones but states that this does not feel similar. Patient denies dysuria, hematuria, vaginal discharge. Surgical history significant for hysterectomy. Patient denies sick contacts, fever, chills, vomiting, diarrhea. I have greeted and performed a rapid initial assessment of this patient. A comprehensive ED assessment and evaluation of the patient including analysis of labs and imaging ( if obtained) and completion of medical decision making will be conducted by an additional ED provider. PHYSICAL EXAMINATION: GENERAL: Well-appearing, well-nourished and in no acute distress. HEAD: Atraumatic, normocephalic. EYES: Pupils equal round extraocular movements intact, conjunctiva are normal. ENT: Nares patent NECK: Normal range of motion Abdomen: Tender to palpation in the right upper quadrant. LUNGS: No respiratory distress Musculoskeletal: Normal range of motion NEUROLOGICAL: Normal speech, normal gait. PSYCH: Normal mood, normal affect. SKIN: Warm, Dry, normal turgor, no rashes or lesions noted. TRAVEL OUTSIDE OF THE [place] IN LAST 30 DAYS: No - Related Data Allergies/Adverse Reactions: ketorolac tromethamine [From Toradol] Adverse Reaction (Verified 09/08/17 18:20) "feels like skin is crawling" Past Medical History - Social History Chew tobacco use (# tins/day): No Frequency of alcohol use: None Drug Abuse: None - Past Medical History Cardiac Medical History: Denies: Hx Coronary Artery Disease, Hx Heart Attack, Hx Hypertension Pulmonary Medical History: Reports: Hx Asthma - LAST ASTHMA ATTACK 1 YEAR AGO, Hx Bronchitis - A CHILD, Hx Pneumonia - A TEENAGER Denies: Hx COPD Neurological Medical History: Reports: Hx Migraine, Hx Seizures - LAST ONE 18 YEARS OLD. Denies: Hx Cerebrovascular Accident Renal/ Medical History: Denies: Hx Peritoneal Dialysis GI Medical History: Reports: Hx Gastroesophageal Reflux Disease Musculoskeltal Medical History: Denies Hx Arthritis Past Surgical History: Reports: Hx Breast Surgery - lump, Hx Section - X2, Hx Gynecologic Surgery, Hx Hysterectomy, Hx Orthopedic Surgery - r ankle, Hx Thyroid Surgery, Hx Tonsillectomy - Immunizations Hx Diphtheria, Pertussis, Tetanus Vaccination: No Physical Exam - Vital signs Vitals: Temp Pulse Resp BP Pulse Ox 98.4 F 81 16 122/91 H 98 09/08/17 17:36 09/08/17 17:36 09/08/17 17:36 09/08/17 17:36 09/08/17 17:36 Course - Vital Signs Vital signs: Temp Pulse Resp BP Pulse Ox 98.4 F 81 16 122/91 H 98 09/08/17 17:36 09/08/17 17:36 09/08/17 17:36 09/08/17 17:36 09/08/17 17:36 Doctor's Discharge - Discharge Referrals: PRASHANTH MASTERS [facility] [facility]-C [Primary Care Provider] - Follow up as needed
[2017-09-08 19:32] LABS: ABSOLUTE BASOPHILS # (AUTO) 0.1 10^3/uL (0.0-0.2); ABSOLUTE EOSINOPHILS # (AUTO) 0.2 10^3/uL (0.0-0.6); ABSOLUTE LYMPHOCYTES (AUTO) 3.8 10^3/uL (0.5-4.7); ABSOLUTE MONOCYTES (AUTO) 0.9 10^3/uL (0.1-1.4); ABSOLUTE NEUT (AUTO) 7.3 10^3/uL (1.7-8.2); BASOPHILS % (AUTO) 0.7 % (0-2); EOSINOPHILS % (AUTO) 1.5 % (0-6); HEMATOCRIT 43.8 % (36.0-47.0); LYMPHOCYTES % (AUTO) 30.8 % (13-45); MEAN CORPUSCULAR HEMOGLOBIN 29.5 pg (27.0-33.4); MEAN CORPUSCULAR HGB CONC 34.2 g/dL (32.0-36.0); MEAN CORPUSCULAR VOLUME 86 fl (80-97); MONOCYTES % (AUTO) 7.2 % (3-13); PLATELET COUNT 332 10^3/uL (150-450); RED BLOOD COUNT 5.09 10^6/uL (3.72-5.28); RED CELL DISTRIBUTION WIDTH 13.7 % (11.5-14.0); SEGMENTED NEUTROPHILS % (AUTO) 59.8 % (42-78); TOTAL CELLS COUNTED % (AUTO) 100 %; WHITE BLOOD COUNT 12.2 10^3/uL (4.0-10.5)
[2017-09-08 19:42] LABS: APPEARANCE,URINE CLEAR; BILIRUBIN,URINE NEGATIVE (NEGATIVE); COLOR,URINE YELLOW; GLUCOSE, URINE NEGATIVE (NEGATIVE); KETONES,URINE NEGATIVE (NEGATIVE); LEUKOCYTE ESTERASE,URINE NEGATIVE (NEGATIVE); NITRITE,URINE NEGATIVE (NEGATIVE); PROTEIN,URINE NEGATIVE (NEGATIVE); URINE SPECIFIC GRAVITY 1.016
[2017-09-08] MEDS ORDERED: FAMOTIDINE 20 MG TABLET PO ONE (19:50)
--- NOTE | 2017-09-08 19:54 | RADIOLOGY REPORT (SQ) ---
EXAM DESCRIPTION: U/S ABDOMEN LIMITED W/O DOP COMPLETED DATE/TIME: 09/08/2017 7:45 pm REASON FOR STUDY: Right upper quadrant abdominal pain COMPARISON: 06/11/2008. TECHNIQUE: Dynamic and static grayscale images acquired of the right upper quadrant and recorded on PACS. Additional selected color Doppler and spectral images recorded. LIMITATIONS: Study limited due to acoustical interference from fat or from air in the bowel. FINDINGS: PANCREAS: Obscured. LIVER: Echotexture is coarse with increased echogenicity consistent with fatty infiltration. No mass es. LIVER VASCULATURE: Normal directional flow of the main portal vein and hepatic veins. GALLBLADDER: Contracted. No stones. Normal wall thickness. No pericholecystic fluid. ULTRASOUND-DETECTED THOMAS'S SIGN: Negative. INTRAHEPATIC DUCTS AND COMMON DUCT: CBD and intrahepatic ducts normal caliber. No filling defects. INFERIOR VENA CAVA: Normal flow. AORTA: No aneurysm. RIGHT KIDNEY: Normal size. Normal echogenicity. No solid or suspicious masses. No hydronephrosis. No calcifications. PERITONEAL CAVITY AND RIGHT PLEURAL SPACE: No ascites or effusions. OTHER: No other significant finding. IMPRESSION: FATTY LIVER. PANCREAS OBSCURED. OTHERWISE NORMAL RIGHT UPPER QUADRANT ULTRASOUND. TECHNICAL DOCUMENTATION: JOB ID: [id number] TRA- All Rights Reserved Reading location - IP/workstation name: [email or web address]
[2017-09-08 20:15] LABS: ALANINE AMINOTRANSFERASE 23 U/L (9-52); ALBUMIN 4.1 g/dL (3.5-5.0); ALKALINE PHOSPHATASE 101 U/L (38-126); ANION GAP 13 (5-19); ASPARTATE AMINO TRANSFERASE 23 U/L (14-36); BILIRUBIN,DIRECT 0.3 mg/dL (0.0-0.4); BILIRUBIN,TOTAL 0.3 mg/dL (0.2-1.3); BLOOD UREA NITROGEN 12 mg/dL (7-20); CALCIUM 9.6 mg/dL (8.4-10.2); CARBON DIOXIDE 29 mmol/L (22-30); CHLORIDE 105 mmol/L (98-107); GLUCOSE 107 mg/dL (75-110); LIPASE 128.3 U/L (23-300); POTASSIUM 4.2 mmol/L (3.6-5.0); SODIUM 146.7 mmol/L (137-145); TOTAL PROTEIN 7.3 g/dL (6.3-8.2)
[2017-09-08] MEDS ORDERED: ONDANSETRON ODT 4 MG TAB (6 TAB/ER DISP) PO PRN (20:27)
[2017-09-08] MEDS ORDERED: MORPHINE SULFATE IR 15 MG TABLET PO ONE (20:27)
[2017-09-08] MEDS ORDERED: CALCIUM CARBONATE 500 MG TAB.CHEW PO ONE (20:27)
[2017-09-08] MEDS ORDERED: ACETAMINOPHEN 325 MG TABLET PO ONE (20:27)
--- NOTE | 2017-09-08 20:29 | ER Document Report ---
ED General - General Chief Complaint: Epigastric Pain Stated Complaint: ABDOMINAL PAIN Time Seen by Provider: 09/08/17 18:23 Mode of Arrival: Ambulatory Notes: The patient is a 36-year-old female with a past medical history of Dimitrios- Danlos syndrome and chronic gastritis who presents with 2-3 hours of severe, burning, throbbing epigastric abdominal pain with associated nausea and vomiting. She states that her symptoms started approximately 30 minutes after eating for he does. He had been constant since that time. Nothing improves or worsens her symptoms. She states this feels similar to when she has had exacerbations of her gastritis in the past although this is more severe than prior episodes. She has not seen her general doctor regarding today's concerns. She denies any diarrhea, lower abdominal pain, dysuria, chest pain or shortness of breath. TRAVEL OUTSIDE OF THE [place] IN LAST 30 DAYS: No - Related Data Allergies/Adverse Reactions: ketorolac tromethamine [From Toradol] Adverse Reaction (Verified 09/08/17 18:20) "feels like skin is crawling" Past Medical History - General Information source: Patient - Social History Smoking Status: Current Every Day Smoker Cigarette use (# per day): Yes - 1 pack per day Chew tobacco use (# tins/day): No Smoking Education Provided: Yes - Smoking cessation counseling was provided for 4 minutes at the bedside Frequency of alcohol use: None Drug Abuse: None Lives with: Spouse/Significant other Family History: Reviewed & Not Pertinent Patient has suicidal ideation: No Patient has homicidal ideation: No - Past Medical History Cardiac Medical History: Denies: Hx Coronary Artery Disease, Hx Heart Attack, Hx Hypertension Pulmonary Medical History: Reports: Hx Asthma - LAST ASTHMA ATTACK 1 YEAR AGO, Hx Bronchitis - A CHILD, Hx Pneumonia - A TEENAGER Denies: Hx COPD Neurological Medical History: Reports: Hx Migraine, Hx Seizures - LAST ONE 18 YEARS OLD. Denies: Hx Cerebrovascular Accident Renal/ Medical History: Denies: Hx Peritoneal Dialysis GI Medical History: Reports: Hx Gastroesophageal Reflux Disease Musculoskeltal Medical History: Denies Hx Arthritis Past Surgical History: Reports: Hx Bowel Surgery, Hx Breast Surgery - lump, Hx Section - X2, Hx Gynecologic Surgery, Hx Hysterectomy, Hx Orthopedic Surgery - r ankle, Hx Thyroid Surgery, Hx Tonsillectomy - Immunizations Hx Diphtheria, Pertussis, Tetanus Vaccination: No Review of Systems - Review of Systems Notes: Constitutional: Negative for fever. HENT: Negative for sore throat. Eyes: Negative for visual changes. Cardiovascular: Negative for chest pain. Respiratory: Negative for shortness of breath. Gastrointestinal: Positive for abdominal pain and vomiting Genitourinary: Negative for dysuria. Musculoskeletal: Negative for back pain. Skin: Negative for rash. Neurological: Negative for headaches, weakness or numbness. 10 point ROS negative except as marked above and in HPI. Physical Exam - Vital signs Vitals: Temp Pulse Resp BP Pulse Ox 98.4 F 81 16 122/91 H 98 09/08/17 17:36 09/08/17 17:36 09/08/17 17:36 09/08/17 17:36 09/08/17 17:36 Interpretation: Normal Notes: PHYSICAL EXAMINATION: GENERAL: Well-appearing, well-nourished and in no acute distress. HEAD: Atraumatic, normocephalic. EYES: Pupils equal round and reactive to light, extraocular movements intact, sclera anicteric, conjunctiva are normal. ENT: nares patent, oropharynx clear without exudates. Moderately dry mucous membranes. NECK: Normal range of motion, supple without lymphadenopathy LUNGS: Breath sounds clear to auscultation bilaterally and equal. No wheezes rales or rhonchi. HEART: Regular rate and rhythm without murmurs ABDOMEN: Soft, epigastric abdominal tenderness but no other localized areas of tenderness, normoactive bowel sounds. No guarding, no rebound. No masses appreciated. EXTREMITIES: Normal range of motion, no pitting or edema. No cyanosis. NEUROLOGICAL: No focal neurological deficits. Moves all extremities spontaneously and on command. PSYCH: Normal mood, normal affect. SKIN: Warm, Dry, normal turgor, no rashes or lesions noted. Course - Re-evaluation Re-evalutation: 09/08/17 20:28 Patient presents with epigastric abdominal pain with associated reflux symptoms most consistent with likely gastritis. Mild epigastric tenderness to palpation but no other localized areas of tenderness. Right upper quadrant ultrasound does not demonstrate any evidence of acute cholecystitis or cholelithiasis. Lipase is normal. No LFT changes. Based on history and exam, I do not suspect ACS, pulmonary embolus, SBO, mesenteric ischemia, acute pancreatitis, biliary pathology, or an abdominal aortic dissection. Patient has had improvement of symptoms here with a GI cocktail. At this time will discharge with return precautions and follow-up recommendations. Verbal discharge instructions given a the bedside and opportunity for questions given. Medication warnings reviewed. Patient is in agreement with this plan and has verbalized understanding of return precautions and the need for primary care follow-up in the next 24-72 hours. - Vital Signs Vital signs: Temp Pulse Resp BP Pulse Ox 98.2 F 61 16 118/80 97 09/08/17 20:40 09/08/17 20:40 09/08/17 20:40 09/08/17 20:40 09/08/17 20:40 - Laboratory Result Diagrams: 09/08/17 19:10 09/08/17 19:10 Laboratory results interpreted by me: 09/08/17 09/08/17 09/08/17 19:10 19:10 19:10 WBC 12.2 H Sodium 146.7 H Urine Urobilinogen 2.0 H - Diagnostic Test Radiology reviewed: Reports reviewed Discharge - Discharge Clinical Impression: Epigastric abdominal pain Gastritis Qualifiers: Gastritis type: unspecified gastritis Chronicity: acute Gastritis bleeding: without bleeding Qualified Code(s): K29.00 - Acute gastritis without bleeding Nausea and vomiting Qualifiers: Vomiting type: unspecified Vomiting Intractability: non-intractable Qualified Code(s): R11.2 - Nausea with vomiting, unspecified Condition: Good Disposition: HOME, SELF-CARE Additional Instructions: Your symptoms appear to be most consistent with stomach or upper intestinal irritation. Please begin taking famotidine 40 mg in the morning and 40 mg at night. This medicine can be purchased directly [id number]. You may also take medicine such as Pepto-Bismol or Tums to assist with your pain. Please return to emergency department immediately if you have worsening of your pain, shortness of breath, vomiting, become unable to exert yourself due to pain or difficulty breathing, you pass out, or have any pain that radiates into your arms, jaw, or back. Please also return if you have any additional symptoms that are concerning to you. As we have discussed, the most important thing is lifestyle changes. You need to avoid smoking, sodas, tea, coffee, alcohol, spicy foods, and acidic foods such as citrus fruits, tomato based products, berries, and most fruit juices. You need to follow-up with her primary care doctor to have testing done for an H. pylori infection. This could explain why you are not having improvement of your symptoms with the appropriate medical therapies. Prescriptions: Famotidine 40 mg PO BID #60 tablet Sucralfate [Carafate 1 gm Tablet] 1 gm PO ACHS #120 tablet Referrals: PRASHANTH MASTERS FNP-C [Primary Care Provider] - Follow up tomorrow
[2017-09-08 21:01] VITALS: BP 118/80
== END 2017-09-08 20:53 | disposition home or self-care (01) ==
LOC: ER 17:31
DX: R10.13 Epigastric pain (principal); K29.00 Acute gastritis without bleeding; R11.2 Nausea with vomiting, unspecified; F17.210 Nicotine dependence, cigarettes, uncomplicated
CPT/HCPCS: 99406; 99284; 36415; 83690; 85025; 80053; 81001; 76705; J3490 ×6; S0119

== ENCOUNTER 2017-11-18 12:37 | Emergency (ER) | payer MEDICAID ==
--- NOTE | 2017-11-18 14:14 | ER Document Report ---
ED Medical Screen (RME) - General Chief Complaint: Vaginal Pain Stated Complaint: VAGINAL SWELLING Time Seen by Provider: 11/18/17 13:53 Notes: 37-year-old female complaining of pain in the vagina. Noticed it a couple of days ago. Has intermittent bleeding. Followed by [facility]UROPSYCHOLOGY MEDICAL CONSULTANT. States it is in the inner portion of her labia. Has any other major symptoms at this time I have greeted and performed a rapid initial assessment of this patient. A comprehensive ED assessment and evaluation of the patient, analysis of test results and completion of the medical decision making process will be conducted by additional ED providers. TRAVEL OUTSIDE OF THE [place] IN LAST 30 DAYS: No - Related Data Allergies/Adverse Reactions: ketorolac tromethamine [From Toradol] Adverse Reaction (Verified 11/18/17 12:38) "feels like skin is crawling" Past Medical History - Past Medical History Cardiac Medical History: Denies: Hx Coronary Artery Disease, Hx Heart Attack, Hx Hypertension Pulmonary Medical History: Reports: Hx Asthma - LAST ASTHMA ATTACK 1 YEAR AGO, Hx Bronchitis - A CHILD, Hx Pneumonia - A TEENAGER Denies: Hx COPD Neurological Medical History: Reports: Hx Migraine, Hx Seizures - LAST ONE 18 YEARS OLD. Denies: Hx Cerebrovascular Accident Renal/ Medical History: Denies: Hx Peritoneal Dialysis GI Medical History: Reports: Hx Gastroesophageal Reflux Disease Musculoskeltal Medical History: Denies Hx Arthritis Past Surgical History: Reports: Hx Bowel Surgery, Hx Breast Surgery - lump, Hx Section - X2, Hx Gynecologic Surgery, Hx Hysterectomy, Hx Orthopedic Surgery - r ankle, Hx Thyroid Surgery, Hx Tonsillectomy - Immunizations Hx Diphtheria, Pertussis, Tetanus Vaccination: No Physical Exam - Vital signs Vitals: Temp Pulse Resp BP Pulse Ox 98.8 F 80 16 127/77 H 100 11/18/17 13:17 11/18/17 13:17 11/18/17 13:17 11/18/17 13:17 11/18/17 13:17 Course - Vital Signs Vital signs: Temp Pulse Resp BP Pulse Ox 98.8 F 80 16 127/77 H 100 11/18/17 13:17 11/18/17 13:17 11/18/17 13:17 11/18/17 13:17 11/18/17 13:17
--- NOTE | 2017-11-18 15:21 | ER Document Report ---
ED GI/ - General Chief Complaint: Vaginal Pain Stated Complaint: VAGINAL SWELLING Time Seen by Provider: 11/18/17 13:53 Mode of Arrival: Ambulatory Information source: Patient Notes: 37-year-old female complaining of swelling to the inferior introitus that she noticed this morning. It is not painful. No history of abscess or Bartholin gland cyst. She is a patient of [facility] related to cervical issues. No pelvic pain. No vaginal discharge. No fever TRAVEL OUTSIDE OF THE [place] IN LAST 30 DAYS: No - Related Data Allergies/Adverse Reactions: ketorolac tromethamine [From Toradol] Adverse Reaction (Verified 11/18/17 12:38) "feels like skin is crawling" Past Medical History - General Information source: Patient - Social History Smoking Status: Current Every Day Smoker Lives with: Family Family History: Reviewed & Not Pertinent Patient has suicidal ideation: No Patient has homicidal ideation: No Pulmonary Medical History: Reports: Hx Asthma - LAST ASTHMA ATTACK 1 YEAR AGO, Hx Bronchitis - A CHILD, Hx Pneumonia - A TEENAGER Neurological Medical History: Reports: Hx Migraine, Hx Seizures - LAST ONE 18 YEARS OLD Renal/ Medical History: Denies: Hx Peritoneal Dialysis GI Medical History: Reports: Hx Gastroesophageal Reflux Disease Past Surgical History: Reports: Hx Bowel Surgery, Hx Breast Surgery - lump, Hx Section - X2, Hx Hysterectomy, Hx Orthopedic Surgery - r ankle, Hx Thyroid Surgery, Hx Tonsillectomy - Immunizations Hx Diphtheria, Pertussis, Tetanus Vaccination: No Review of Systems - Review of Systems Constitutional: No symptoms reported EENT: No symptoms reported Cardiovascular: No symptoms reported Respiratory: No symptoms reported Gastrointestinal: No symptoms reported Genitourinary: No symptoms reported Female Genitourinary: See HPI Musculoskeletal: No symptoms reported Skin: No symptoms reported Hematologic/Lymphatic: No symptoms reported Neurological/Psychological: No symptoms reported Physical Exam - Vital signs Vitals: Temp Pulse Resp BP Pulse Ox 98.8 F 80 16 127/77 H 100 11/18/17 13:17 11/18/17 13:17 11/18/17 13:17 11/18/17 13:17 11/18/17 13:17 Interpretation: Normal - General General appearance: Appears well, Alert - HEENT Head: Normocephalic - Respiratory Respiratory status: No respiratory distress Chest status: Nontender Breath sounds: Normal Chest palpation: Normal - Cardiovascular Rhythm: Regular Heart sounds: Normal auscultation Murmur: No - Abdominal Inspection: Normal Distension: No distension Bowel sounds: Normal Tenderness: Nontender Organomegaly: No organomegaly - Genitourinary External exam: Lesions - soft non tender 1 cm left bartholin gland cyst - Back Back: Normal, Nontender - Extremities General upper extremity: Normal inspection, Nontender, Normal color, Normal ROM , Normal temperature General lower extremity: Normal inspection, Nontender, Normal color, Normal ROM , Normal temperature, Normal weight bearing. No: Jose's sign - Neurological Neuro grossly intact: Yes Cognition: Normal Orientation: AAOx4 [place] Coma Scale Eye Opening: Spontaneous [place] Coma Scale Verbal: Oriented [place] Coma Scale Motor: Obeys Commands [place] Coma Scale Total: 15 Speech: Normal Motor strength normal: LUE, RUE, LLE, RLE Sensory: Normal - Psychological Associated symptoms: Normal affect, Normal mood - Skin Skin Temperature: Warm Skin Moisture: Dry Skin Color: Normal Course - Vital Signs Vital signs: Temp Pulse Resp BP Pulse Ox 98.6 F 57 L 16 115/80 100 11/18/17 15:24 11/18/17 15:24 11/18/17 15:24 11/18/17 15:24 11/18/17 15:24 Discharge - Discharge Clinical Impression: Bartholin's gland cyst Condition: Good Disposition: HOME, SELF-CARE Instructions: Bartholin Gland Cyst or Abscess ([facility]), Warm Packs ([facility]) Additional Instructions: see [facility] for this bartholin gland cyst if it becomes painful, warm red, larger you will need incision and drainage warm compress with warm sitz bath four times per day this week Referrals: DEDE VIEIRA MD [ACTIVE STAFF] - Follow up as needed
[2017-11-18 15:25] VITALS: BP 115/80
== END 2017-11-18 15:27 | disposition home or self-care (01) ==
LOC: ER 12:37
DX: N75.0 Cyst of Bartholin's gland (principal); R10.2 Pelvic and perineal pain; F17.200 Nicotine dependence, unspecified, uncomplicated; Z90.710 Acquired absence of both cervix and uterus
CPT/HCPCS: 99283

== ENCOUNTER 2018-03-21 18:20 | Emergency (ER) | payer MEDICAID ==
[2018-03-21] MEDS ORDERED: OLANZAPINE 5 MG TABLET PO ONE (19:12)
[2018-03-21] MEDS ORDERED: DIVALPROEX SODIUM 250 MG TAB.SR.24H PO ONE (19:12)
--- NOTE | 2018-03-21 19:23 | ER Document Report ---
ED Medical Screen (RME) - General Chief Complaint: Psych Problem Stated Complaint: PSYCH EVAL Time Seen by Provider: 03/21/18 19:10 Notes: Patient with a long history of manic depressive disorder and bipolar disorder as well as anxiety. She is off of all medications because she cannot afford them. She used to go to see the counselors at [facility]. Does not see them now. Says she is thought about harming herself by cutting herself and she has done just that to her left forearm. She says that she contacted [facility] and they supposed to have a bed available when she is medically cleared. Patient has been on Zyprexa in the past and it helped her condition. She is also think she is taking Depakote and not sure of its benefit. TRAVEL OUTSIDE OF THE [place] IN LAST 30 DAYS: No - Related Data Allergies/Adverse Reactions: ketorolac tromethamine [From Toradol] Adverse Reaction (Verified 03/21/18 18:28) "feels like skin is crawling" Past Medical History - Social History Cigarette use (# per day): Yes Frequency of alcohol use: None Drug Abuse: Marijuana Pulmonary Medical History: Reports: Hx Asthma - LAST ASTHMA ATTACK 1 YEAR AGO, Hx Bronchitis - A CHILD, Hx Pneumonia - A TEENAGER Neurological Medical History: Reports: Hx Migraine, Hx Seizures - LAST ONE 18 YEARS OLD GI Medical History: Reports: Hx Gastroesophageal Reflux Disease Past Surgical History: Reports: Hx Bowel Surgery - Bowel blockages twice requiring surgery, Hx Breast Surgery - lump, Hx Section - X2, Hx Gynecologic Surgery, Hx Hysterectomy, Hx Orthopedic Surgery - r ankle, Hx Thyroid Surgery, Hx Tonsillectomy - Immunizations Hx Diphtheria, Pertussis, Tetanus Vaccination: No Review of Systems - Review of Systems Notes: REVIEW OF SYSTEMS: CONSTITUTIONAL : Denies fever. EENT: Denies eye, ear, nose or mouth or throat pain or other symptoms. CARDIOVASCULAR: Denies chest pain. RESPIRATORY: Denies cough, chest congestion, or shortness of breath. GASTROINTESTINAL: Denies abdominal pain or nausea, vomiting, or diarrhea. GENITOURINARY: Denies difficulty or painful urinating, urinary frequency, blood in urine. MUSCULOSKELETAL: Denies back or neck pain. Denies joint pain or swelling. SKIN: Denies rash or skin lesions. Superficial cuts of the dorsal left forearm, self-inflicted NEUROLOGICAL: Denies LOC or altered mental status. Denies headache. Denies sensory loss or motor deficits. ALL OTHER SYSTEMS REVIEWED AND NEGATIVE. Physical Exam - Vital signs Vitals: Temp Pulse Resp BP Pulse Ox 98.8 F 86 16 129/77 H 97 03/21/18 18:29 18 18:29 03/21/18 18:29 03/21/18 18:29 03/21/18 18:29 Interpretation: Normal Notes: PHYSICAL EXAMINATION: GENERAL: Well-appearing, in no acute distress. Anxious. Talks and acts rapidly HEAD: Atraumatic, normocephalic. EYES: Pupils equal round and reactive to light, extraocular movements intact. ENT: oropharynx clear without exudates. Moist mucous membranes. NECK: Normal range of motion, supple. LUNGS: Breath sounds clear and equal bilaterally. HEART: Regular rate and rhythm without murmurs. ABDOMEN: Soft, nontender. No guarding or rebound. No masses. BACK: No tenderness throughout entire back. EXTREMITIES: Normal range of motion without pain. NEUROLOGICAL: Normal speech, normal gait. Normal sensory, motor, and reflex exams. Awake, alert, and oriented x3. Cranial nerves normal. PSYCH: Anxious and hyperactive, hyper conversation. Jittery and fidgety. SKIN: Warm, dry, no rashes. Patient has numerous superficial self-inflicted cuts on the dorsal aspect of the mid left forearm. None of these are deep enou gh to require sutures. Course - Re-evaluation Re-evalutation: 03/21/18 19:52 Patient arrived in the emergency department after the end of workday for the mental health counselors. We believe that she should be evaluated by [facility] before leaving the emergency department. Discussed this situation with the patient and she is agreeable to staying overnight to see mental health in the morning. Therefore, IVC will not be obtained. - Vital Signs Vital signs: Temp Pulse Resp BP Pulse Ox 98.8 F 86 16 129/77 H 97 03/21/18 18:29 03/21/18 18:29 03/21/18 18:29 03/21/18 18:29 03/21/18 18:29 - Laboratory Result Diagrams: 03/21/18 19:31 03/21/18 19:31 Doctor's Discharge - Discharge Clinical Impression: Bipolar disorder, Anxiety Condition: Stable
[2018-03-21 19:54] LABS: ABSOLUTE BASOPHILS # (AUTO) 0.1 10^3/uL (0.0-0.2); ABSOLUTE EOSINOPHILS # (AUTO) 0.1 10^3/uL (0.0-0.6); ABSOLUTE LYMPHOCYTES (AUTO) 2.9 10^3/uL (0.5-4.7); ABSOLUTE MONOCYTES (AUTO) 0.8 10^3/uL (0.1-1.4); ABSOLUTE NEUT (AUTO) 7.3 10^3/uL (1.7-8.2); BASOPHILS % (AUTO) 0.5 % (0-2); EOSINOPHILS % (AUTO) 0.8 % (0-6); HEMOGLOBIN 14.5 g/dL (12.0-15.5); LYMPHOCYTES % (AUTO) 26.1 % (13-45); MEAN CORPUSCULAR HEMOGLOBIN 31.1 pg (27.0-33.4); MEAN CORPUSCULAR HGB CONC 35.5 g/dL (32.0-36.0); MEAN CORPUSCULAR VOLUME 88 fl (80-97); MONOCYTES % (AUTO) 7.1 % (3-13); PLATELET COUNT 318 10^3/uL (150-450); RED BLOOD COUNT 4.68 10^6/uL (3.72-5.28); RED CELL DISTRIBUTION WIDTH 13.4 % (11.5-14.0); SEGMENTED NEUTROPHILS % (AUTO) 65.5 % (42-78); TOTAL CELLS COUNTED % (AUTO) 100 %; WHITE BLOOD COUNT 11.2 10^3/uL (4.0-10.5)
[2018-03-21 20:04] LABS: APPEARANCE,URINE SLIGHTLY-CLOUDY; BILIRUBIN,URINE NEGATIVE (NEGATIVE); COLOR,URINE YELLOW; GLUCOSE, URINE NEGATIVE (NEGATIVE); KETONES,URINE TRACE mg/dL (NEGATIVE); LEUKOCYTE ESTERASE,URINE NEGATIVE (NEGATIVE); NITRITE,URINE NEGATIVE (NEGATIVE); PROTEIN,URINE NEGATIVE (NEGATIVE)
[2018-03-21 20:11] LABS: ALANINE AMINOTRANSFERASE 14 U/L (9-52); ALBUMIN 4.2 g/dL (3.5-5.0); ALKALINE PHOSPHATASE 79 U/L (38-126); ANION GAP 7 (5-19); ASPARTATE AMINO TRANSFERASE 20 U/L (14-36); BILIRUBIN,DIRECT 0.3 mg/dL (0.0-0.4); BILIRUBIN,TOTAL 0.6 mg/dL (0.2-1.3); BLOOD UREA NITROGEN 14 mg/dL (7-20); CALCIUM 9.7 mg/dL (8.4-10.2); CARBON DIOXIDE 26 mmol/L (22-30); CHLORIDE 107 mmol/L (98-107); GLUCOSE 94 mg/dL (75-110); POTASSIUM 3.7 mmol/L (3.6-5.0); SODIUM 140.4 mmol/L (137-145); TOTAL PROTEIN 7.3 g/dL (6.3-8.2)
[2018-03-21 20:14] LABS: ACETAMINOPHEN < 10 ug/mL (10-30); ALCOHOL < 10 mg/dL (NONE DETECTED); SALICYLATE < 1.0 mg/dL (2.0-20.0)
[2018-03-21 20:17] LABS: URINE AMPHETAMINES SCREEN NEGATIVE; URINE BARBITURATES SCREEN NEGATIVE; URINE BENZODIAZEPINES SCREEN NEGATIVE; URINE COCAINE SCREEN NEGATIVE; URINE MARIJUANA (THC) SCREEN UNCONFIRMED POSITIVE; URINE METHADONE SCREEN NEGATIVE; URINE PHENCYCLIDINE SCREEN NEGATIVE
[2018-03-21] MEDS ORDERED: DIAZEPAM 5 MG TABLET PO ONE (21:10)
[2018-03-21] MEDS ORDERED: NICOTINE 21 MG/24 HR PATCH.TD24 TD ONE (21:10)
[2018-03-22 09:13] VITALS: BP 148/81
--- NOTE | 2018-03-22 09:25 | ER Document Report ---
Addendum entered and electronically signed by FERMIN VILLAFANA PSYD 03/22/18 18:37: Discharge - Discharge Clinical Impression: Anxiety Bipolar disorder Qualifiers: Active/Remission status: currently active Current bipolar episode type: mixed Current episode severity: unspecified Qualified Code(s): F31.60 - Bipolar disorder, current episode mixed, unspecified Condition: Stable Disposition: HOME, SELF-CARE Additional Instructions: You were seen and assessed in the [facility] ED by the medical and behavioral health teams for depression and suicidal ideation with no plan or intent and now is appropriate for discharge. While admitted to the ED you received a medical screening, lab work, and EKG, medications, direct observation, clinical evaluation and physician assessments. You were admitted via voluntary status and the behavioral health team assisted your efforts in seeking voluntary psychiatric placement and found that multiple hospitals had no availability or you did not meet their admission criteria, and you did not meet involuntary commitment criteria. As such, you are encouraged to follow up with your outpatient provider, JORDAN to schedule your outpatient appointment. DEPRESSION: Your evaluation reveals that you have mental depression. While symptoms may be vague, they often include disturbance of sleep, fatigue, loss of appetite, and general loss of interest in life. While depression may be a side effect of drugs, or a reaction to a major change in your life, many cases have no known cause. If depression is acute, and related to a major loss in your life, you can expect it to clear completely with time. If you have been depressed a long time, are prone to repeated bouts of depression or low mood, or have been thinking of suicide, get help. Depression can be treated with anti-depressant medication and counseling. Long-term depression will often take a few weeks to clear, even with appropriate medication. Follow-up care is important. SUICIDAL IDEATION: Suicidal ideation is a common medical term for thoughts about suicide, which may be as detailed as a formulated plan, without the suicidal act itself. Although most people who undergo suicidal ideation do not commit suicide, some go on to make suicide attempts. The range of suicidal ideation varies greatly from fleeting to detailed planning, role playing, and unsuccessful attempts. While thoughts about suicide are common, most people do not carry out serious actions to commit suicide. Based upon your evaluation and discussion with you, we do not believe you are currently at risk to act upon your thoughts of suicide. You have agreed to return to the Emergency Department, at any time, if you feel inclined to act upon your suicidal thoughts. FOLLOW-UP CARE: If you have been referred to a physician for follow-up care, call the physicians office for an appointment as you were instructed or within the next two days. If you experience worsening or a significant change in your symptoms, notify the physician immediately or return to the Emergency Department at any t veronica for re-evaluation. Referrals: JW SCHROEDER PA-C [Primary Care Provider] - Follow up as needed [facility] [Provider Group] - Follow up as needed Course - Vital Signs Vital signs: Temp Pulse Resp BP Pulse Ox 98.1 F 57 L 16 148/81 H 99 03/22/18 09:07 03/22/18 09:07 03/22/18 09:07 03/22/18 09:07 03/22/18 09:07 - Laboratory Result Diagrams: 03/21/18 19:31 03/21/18 19:31 Laboratory results interpreted by me: 03/21/18 03/21/18 03/21/18 19:31 19:31 19:31 WBC 11.2 H Urine Ketones TRACE H Urine Blood SMALL H Urine Urobilinogen 2.0 H Salicylates < 1.0 L Acetaminophen < 10 L Physical Exam - Vital signs Vitals: Temp Pulse Resp BP Pulse Ox 98.8 F 86 16 129/77 H 97 03/21/18 18:29 03/21/18 18:29 03/21/18 18:29 03/21/18 18:29 03/21/18 18:29 Addendum entered and electronically signed by JAY REID MD 03/22/18 18:21: Discharge - Discharge Clinical Impression: Anxiety Bipolar disorder Qualifiers: Active/Remission status: currently active Current bipolar episode type: mixed Current episode severity: unspecified Qualified Code(s): F31.60 - Bipolar disorder, current episode mixed, unspecified Condition: Stable Referrals: JW SCHROEDER PA-C [Primary Care Provider] - Follow up as needed Course - Re-evaluation Re-evalutation: 03/22/18 18:20 Behavioral health saw and evaluated the patient. We will discharge the patient home. There are no beds available at [facility]. - Vital Signs Vital signs: Temp Pulse Resp BP Pulse Ox 98.1 F 57 L 16 148/81 H 99 03/22/18 09:07 03/22/18 09:07 03/22/18 09:07 03/22/18 09:07 03/22/18 09:07 - Laboratory Result Diagrams: 03/21/18 19:31 03/21/18 19:31 Laboratory results interpreted by me: 03/21/18 03/21/18 03/21/18 19:31 19:31 19:31 WBC 11.2 H Urine Ketones TRACE H Urine Blood SMALL H Urine Urobilinogen 2.0 H Salicylates < 1.0 L Acetaminophen < 10 L Physical Exam - Vital signs Vitals: Temp Pulse Resp BP Pulse Ox 98.8 F 86 16 129/77 H 97 03/21/18 18:29 03/21/18 18:29 03/21/18 18:29 03/21/18 18:29 03/21/18 18:29 Original Note: Doctor's Note Notes: Patient was seen and evaluated by myself. She has a history of bipolar disorder and anxiety. Patient states that she is off all of her medications because she cannot afford them. She has not been following up with her counselors. Patient states that she is currently having suicidal ideations. She has been thinking about cutting herself. Patient has cut her left forearm. Patient states that she contacted [facility] and they told her to go to the nearest emergency department for medical clearance prior to transfer. Patient had no issues overnight per nursing. Her vital signs are stable. Patient admits to feeling suicidal in the room today. Awaiting behavioral health recommendations.
--- NOTE | 2018-03-22 12:51 | EKG REPORT ---
SEVERITY:- NORMAL ECG - SINUS RHYTHM : Confirmed by: Rich Thomas 22-Mar-2018 12:50:29
== END 2018-03-22 20:15 | disposition home or self-care (01) ==
LOC: ER 18:20
DX: F41.9 Anxiety disorder, unspecified (principal); F31.60 Bipolar disorder, current episode mixed, unspecified
CPT/HCPCS: 93005; 99284; 36415; 80307 ×4; 85025; 80053; 81001; 93010; J3490 ×4

== ENCOUNTER 2018-04-10 07:14 | Day surgery (SDC) | payer MEDICAID, OTHER ==
[2018-04-02 11:03] LABS: HEMATOCRIT 41.4 % (36.0-47.0); HEMOGLOBIN 14.4 g/dL (12.0-15.5); MEAN CORPUSCULAR HGB CONC 34.8 g/dL (32.0-36.0); MEAN CORPUSCULAR VOLUME 89 fl (80-97); PLATELET COUNT 273 10^3/uL (150-450); RED BLOOD COUNT 4.66 10^6/uL (3.72-5.28); WHITE BLOOD COUNT 8.7 10^3/uL (4.0-10.5)
[2018-04-02 11:05] LABS: APPEARANCE,URINE CLEAR; BILIRUBIN,URINE NEGATIVE (NEGATIVE); COLOR,URINE STRAW; GLUCOSE, URINE NEGATIVE (NEGATIVE); KETONES,URINE NEGATIVE (NEGATIVE); LEUKOCYTE ESTERASE,URINE NEGATIVE (NEGATIVE); NITRITE,URINE NEGATIVE (NEGATIVE); PROTEIN,URINE NEGATIVE (NEGATIVE); URINE SPECIFIC GRAVITY 1.006; UROBILINOGEN,URINE NEGATIVE mg/dL (<2.0)
[~2018-04-10 07:14] MED LIST changes: -BESIFLOXACIN HCL 0.6% OPH SUSP 5 ML BOTTLE OU ONE; -HYDROCODONE/ACETAMINOPHEN 5-325 MG 6 TAB/DSPK PO PRN; +LACTATED RINGERS 1000 ML IV PRN; +LIDOCAINE 0.5% INJ-PF (5 MG/ML) 50 ML SDV SUBCUT PRN; -TETRACAINE HCL 0.5% OPH SOLN 2 ML OU ONE
[2018-04-10] MEDS ORDERED: ALBUTEROL SULFATE 0.083% NEB 2.5 MG/3 ML AMPUL NEB ONE (07:41)
[2018-04-10] MEDS ORDERED: FAMOTIDINE INJ/PF 20 MG/2 ML SDV IV ONE (08:20)
[2018-04-10] MEDS ORDERED: SCOPOLAMINE HYDROBROMIDE 1.5 MG PATCH.TD72 ONE (08:20)
[2018-04-10] MEDS ORDERED: MORPHINE SULFATE 10 MG/ML INJ IV PRN (08:29)
[2018-04-10] MEDS ORDERED: DIPHENHYDRAMINE HCL 50 MG/ML VIAL IV PRN (08:29)
[2018-04-10] MEDS ORDERED: FENTANYL CITRATE INJ/PF 100 MCG/2 ML AMPUL IV PRN ×3 (08:29)
[2018-04-10] MEDS ORDERED: MEPERIDINE HCL/PF INJ 25 MG/1 ML DISP.SYRIN IV PRN (08:29)
[2018-04-10] MEDS ORDERED: PROMETHAZINE HCL INJ 25 MG/1 ML VIAL IV PRN ×2 (08:29)
[2018-04-10] MEDS ORDERED: FENTANYL CITRATE INJ/PF 100 MCG/2 ML AMPUL ONE (08:59)
[2018-04-10] MEDS ORDERED: LIDOCAINE 2% INJ-PF (20 MG/ML) 10 ML AMPUL ONE (08:59)
[2018-04-10] MEDS ORDERED: KETOROLAC TROMETHAMINE 60 MG/2 ML SDV ONE (08:59)
[2018-04-10] MEDS ORDERED: ONDANSETRON HCL INJ/PF 4 MG/2 ML SDV ONE (09:00)
[2018-04-10] MEDS ORDERED: HYDROMORPHONE HCL INJ/PF 2 MG/ML AMPULE ONE (09:00)
[2018-04-10] MEDS ORDERED: PROPOFOL INJ 200 MG/20 ML VIAL IV ONE ×2 (09:00→10:48)
[2018-04-10] MEDS ORDERED: MIDAZOLAM 2 MG/2 ML INJ ONE (09:00)
[2018-04-10] MEDS ORDERED: DEXAMETHASONE SOD PHOSPHATE INJ 4 MG/1 ML VIAL ONE (09:00)
[2018-04-10] MEDS ORDERED: ACETAMINOPHEN 1,000 MG/100 ML RTUPB IV ONE (09:01)
[2018-04-10] MEDS ORDERED: BUPIVACAINE HCL 0.5%-EPI 1:200000 INJ/PF 30 ML VIAL ONE (09:02)
[2018-04-10] MEDS ORDERED: PROMETHAZINE HCL INJ 25 MG/1 ML VIAL ONE (09:11)
[2018-04-10] MEDS ORDERED: SILVER SULFADIAZINE 1% CREAM 25 GM ONE (10:15)
[2018-04-10] MEDS: FENTANYL CITRATE INJ/PF 100 MCG/2 ML AMPUL ONE ×2 (10:46→10:51)
--- NOTE | 2018-04-10 11:12 | OPERATIVE REPORT E ---
Operative Report NAME: DEBBIE MOFFETT : 1980 AGE: 37Y DATE OF SURGERY: 04/10/2018 ROOM: PREOPERATIVE DIAGNOSES: 1. Persistent vaginal bleeding after hysterectomy. 2. Left Bartholin cyst. POSTOPERATIVE DIAGNOSES: 1. Persistent vaginal bleeding after hysterectomy. 2. Left Bartholin cyst. OPERATION: 1. Cervical biopsy. 2. Bartholin cyst excision. SURGEON: LILLIE PAZ M.D. ANESTHESIA: Luisa Daniels M.D. FINDINGS: Normal-appearing cervical stump. The Bartholin gland cyst on the left side measured approximately 5.5 cm long. COMPLICATIONS: None. ESTIMATED BLOOD LOSS: 50 mL. SPECIMENS REMOVED: Cervical biopsy and the Bartholin gland cyst wall. PROCEDURE IN DETAIL: The patient was taken to the operating room, prepared, and draped in a normal sterile fashion in the dorsal lithotomy position. Under sterile conditions an in-and-out catheter was performed of approximately 30 mL of clear urine. A sterile speculum was placed into the vagina. The cervix was grasped on the anterior aspect with a single-tooth tenaculum and prepped with Betadine. I then injected the cervix with approximately 10 mL of 0.25% bupivacaine with epinephrine. I then scored the cervical canal with an 11 blade scalpel and biopsied and removed the inner cervical canal using the scalpel and Mayos as needed for amputation. The defect was then copiously coagulated with a ball cautery. The defect was then packed with a small piece of Surgifoam soaked in Monsel's. The speculum was then removed and attention was turned to the Bartholin's. The Bartholin cyst was located and injected again with bupivacaine with epinephrine. The cyst was then ruptured using a scalpel. An incision was made of approximately 2 cm using the 15 blade scalpel. The cyst wall was located and this was shelled out using blunt dissection and sharp dissection using small surgical scissors. The cyst wall was removed completely and amputated using scissors. The defect was then closed in layers using 0 Vicryl at the deepest layer to obtain hemostasis. Approximately 5 interrupted sutures were placed in a [id number] pattern each for this. The rest of the incision was then reapproximated with 2-0 Vicryl and the subcutaneous layer was closed with the 2-0 Vicryl as well. The patient tolerated the procedure well. Sponge, lap, and needle counts were correct x2. The patient had Silvadene cream placed on the labia at her Bartholin excision defect to assist with healing, and this was given to the patient to take home for use afterwards. The sponge, lap, and needle counts were correct x2, and the patient was taken to recovery in stable condition. DICTATING PHYSICIAN: LILLIE PAZ M.D. [id number] PHY#: [id number] ID: [id number] JOB#: [id number] ACCT: [id number] cc:LILLIE PAZ M.D. >
[2018-04-10] MEDS ORDERED: HYDROMORPHONE HCL INJ/PF 2 MG/ML AMPULE IM PRN (11:24)
[2018-04-10] MEDS ORDERED: IBUPROFEN 800 MG TABLET PO PRN (11:25)
[2018-04-10] MEDS ORDERED: OXYCODONE-ACETAMINOPHEN 5-325 MG TABLET PO PRN ×2 (11:26→11:27)
[2018-04-10] MEDS ORDERED: IBUPROFEN 800 MG TABLET ONE (11:27)
[2018-04-10] MEDS ORDERED: OXYCODONE-ACETAMINOPHEN 5-325 MG TABLET ONE (11:27)
[2018-04-10 12:39] VITALS: BP 121/70
== END 2018-04-10 12:30 | disposition home or self-care (01) ==
LOC: OROUT 07:14
PROVIDERS: ATTEND Obstetrics & Gynecology
DX: N75.0 Cyst of Bartholin's gland (principal); N84.1 Polyp of cervix uteri; N93.8 Other specified abnormal uterine and vaginal bleeding; J45.909 Unspecified asthma, uncomplicated; Z79.899 Other long term (current) drug therapy; F17.210 Nicotine dependence, cigarettes, uncomplicated; E66.9 Obesity, unspecified; Z68.34 Body mass index [BMI] 34.0-34.9, adult; Z88.5 Allergy status to narcotic agent
CPT/HCPCS: 36415; 85027; 81001; 88304 ×2; 88305 ×2; 56740; 57500; J2250; J3490 ×5; J1100; J3010; J1170; J2550; J2405; J2704; S0028; J0131; 940; J1885

== ENCOUNTER → 2018-11-14 | Outpatient (CLI) | payer MEDICAID ==
[2018-11-14 12:26] LABS: ABSOLUTE EOSINOPHILS # (AUTO) 0.2 10^3/uL (0.0-0.6); ABSOLUTE LYMPHOCYTES (AUTO) 2.5 10^3/uL (0.5-4.7); ABSOLUTE MONOCYTES (AUTO) 0.6 10^3/uL (0.1-1.4); ABSOLUTE NEUT (AUTO) 7.2 10^3/uL (1.7-8.2); BASOPHILS % (AUTO) 0.4 % (0-2); EOSINOPHILS % (AUTO) 1.5 % (0-6); HEMATOCRIT 40.1 % (36.0-47.0); HEMOGLOBIN 14.2 g/dL (12.0-15.5); LYMPHOCYTES % (AUTO) 23.9 % (13-45); MEAN CORPUSCULAR HEMOGLOBIN 30.8 pg (27.0-33.4); MEAN CORPUSCULAR HGB CONC 35.4 g/dL (32.0-36.0); MEAN CORPUSCULAR VOLUME 87 fl (80-97); MONOCYTES % (AUTO) 6.1 % (3-13); PLATELET COUNT 248 10^3/uL (150-450); RED BLOOD COUNT 4.62 10^6/uL (3.72-5.28); RED CELL DISTRIBUTION WIDTH 13.5 % (11.5-14.0); SEGMENTED NEUTROPHILS % (AUTO) 68.1 % (42-78); TOTAL CELLS COUNTED % (AUTO) 100 %; WHITE BLOOD COUNT 10.5 10^3/uL (4.0-10.5)
[2018-11-14 12:45] LABS: ALBUMIN 3.8 g/dL (3.5-5.0); ALKALINE PHOSPHATASE 80 U/L (38-126); ANION GAP 7 (5-19); ASPARTATE AMINO TRANSFERASE 23 U/L (14-36); BILIRUBIN,DIRECT 0.3 mg/dL (0.0-0.4); BILIRUBIN,TOTAL 0.5 mg/dL (0.2-1.3); BLOOD UREA NITROGEN 13 mg/dL (7-20); CARBON DIOXIDE 26 mmol/L (22-30); CHLORIDE 106 mmol/L (98-107); GLUCOSE 91 mg/dL (75-110); LITHIUM 0.4 mEq/L (0.6-1.2); POTASSIUM 3.9 mmol/L (3.6-5.0); TOTAL PROTEIN 6.9 g/dL (6.3-8.2)
[2018-11-14 13:00] LABS: FREE T4 (FREE THYROXINE) 0.71 ng/dL (0.78-2.19)
[2018-11-14 13:13] LABS: THYROID STIMULATING HORMONE 2.78 uIU/mL (0.47-4.68)
== END ==
LOC: OD 11:24
PROVIDERS: ATTEND Physician Assistant
DX: F31.81 Bipolar II disorder (principal); Z79.899 Other long term (current) drug therapy
CPT/HCPCS: 36415; 80053; 80178; 84439; 84443; 85025